=== PATIENT | female | born 1945 | race Caucasian/White ===

== ENCOUNTER → 2016-09-07 | Outpatient (CLI) | payer OTHER ==
[~2016-09-07] MED LIST: AMLO2.5T PO; ASPI81TA25 PO; ATOR-14 PO; ATOR10TA88 PO; BIOT1TAB5 PO; ERGO1CAP35 PO; ESTR1CRE PV; LEVO125T72 PO; LEVO88TA PO; MELO7.5T5 PO; OMEP40CA41 PO; PRMVC PV; QUIN20TA30 PO; TRAZ50TA35 PO
== END | disposition home or self-care (01) ==
LOC: C.LAB1850 12:32
PROVIDERS: ATTEND Family Medicine
DX: E03.9 Hypothyroidism, unspecified (principal)

== ENCOUNTER → 2016-09-10 | Outpatient (CLI) | payer OTHER ==
[2016-09-10 18:25] LABS: LYME DISEASE AB IGG NEG (NEG); LYME DISEASE AB IGM NEG (NEG)
== END | disposition home or self-care (01) ==
LOC: C.LAB1850 16:10
PROVIDERS: ATTEND Nurse Practitioner Family
DX: S00.86XA Insect bite (nonvenomous) of other part of head, initial encounter (principal); W57.XXXA Bitten or stung by nonvenomous insect and other nonvenomous arthropods, initial encounter

== ENCOUNTER → 2016-10-08 | Outpatient (CLI) | payer OTHER ==
[~2016-10-08] MED LIST changes: +ATOR10TA82 PO; -ATOR10TA88 PO
== END | disposition home or self-care (01) ==
LOC: C.LAB1850 13:16
PROVIDERS: ATTEND Family Medicine
DX: E03.9 Hypothyroidism, unspecified (principal)

== ENCOUNTER → 2016-10-19 | Outpatient (CLI) | payer OTHER ==
--- NOTE | 2016-10-19 11:49 | DIAGNOSTIC IMAGING REPORT ---
LEFT HIP 2 VIEWS HISTORY: M25.552 Left hip [id number] COMPARISON: None. FINDINGS: There is no fracture or dislocation. Soft tissues are unremarkable. Mild cartilage space narrowing consistent with degenerative change. IMPRESSION: No fracture or dislocation within the left hip. Electronically signed by: Giles Bland M.D. 10/19/2016 11:47 AM Dictated Date/Time: 10/19/2016 11:46 AM
== END | disposition home or self-care (01) ==
LOC: C.RAD1850 11:19
PROVIDERS: ATTEND Family Medicine
DX: M25.552 Pain in left hip (principal)

== ENCOUNTER → 2016-12-03 | Outpatient (CLI) | payer OTHER ==
[2016-12-03 16:13] LABS: THYROID STIMULATING HORMONE 0.621 uIu/ml (0.300-4.500)
[2016-12-05 15:30] LABS: MICROSOMAL AB <1 IU/ML (<9)
== END | disposition home or self-care (01) ==
LOC: C.LAB1850 14:48
PROVIDERS: ATTEND Family Medicine
DX: E03.9 Hypothyroidism, unspecified (principal)

== ENCOUNTER → 2016-12-28 | Outpatient (CLI) | payer OTHER ==
--- NOTE | 2016-12-28 16:00 | MAMMOGRAPHY REPORT ---
BILATERAL DIGITAL SCREENING MAMMOGRAM WITH CAD: 12/28/2016 CLINICAL HISTORY: Routine screening. Patient has no complaints. TECHNIQUE: Bilateral CC and MLO views were obtained. Current study was also evaluated with a Compute r Aided Detection (CAD) system. COMPARISON: Comparison is made to exams dated: 12/27/2015 mammogram, 12/25/2014 mammogram, 11/30/2013 m ammogram, 05/16/2013 mammogram, 05/08/2013 mammogram, and 02/29/2012 mammogram - [facility]. BREAST COMPOSITION: The tissue of both breasts is heterogeneously dense, which may obscure small mas ses. FINDINGS: There is an 11 mm asymmetry in the lateral posterior right breast, only seen on the CC vie w. Although this could represent normal fibroglandular tissue, additional spot compression tomosynth esis views and possibly ultrasound are recommended. There is a stable ribbon shaped metallic biopsy marker in the left upper outer quadrant. A few scatt ered benign-appearing round calcifications. No other suspicious mass, architectural distortion or clu ster of microcalcifications is seen. IMPRESSION: ACR BI-RADS CATEGORY 0: INCOMPLETE EVALUATION: NEED ADDITIONAL IMAGING EVALUATION The 11 mm asymmetry in the lateral right breast needs additional evaluation. The patient will be called to schedule an appointment. Approximately 10% of breast cancers are not detected with mammography. A negative mammographic report should not delay biopsy if a clinically suggestive mass is present. Kaylee Mathew M.D. ay/:12/28/2016 14:31:09 Ip Litigation Paralegal: Lenore SMART(R)(Gilles)(MARLYS), [facility] letter sent: Addl Imaging 0 BI-RADS Code: ACR BI-RADS Category 0: Incomplete Evaluation: Need Additional Imaging Evaluation
== END | disposition home or self-care (01) ==
LOC: C.MAMM 13:22
PROVIDERS: ATTEND Family Medicine
DX: Z12.31 Encounter for screening mammogram for malignant neoplasm of breast (principal)

== ENCOUNTER → 2017-01-06 | Outpatient (CLI) | payer OTHER ==
[~2017-01-06] MED LIST changes: -ATOR10TA82 PO; +ATOR10TA88 PO
--- NOTE | 2017-01-12 12:16 | MAMMOGRAPHY REPORT ---
UNILATERAL RIGHT DIGITAL DIAGNOSTIC MAMMOGRAM TOMOSYNTHESIS AND TARGETED RIGHT ULTRASOUND: 01/06/2017 CLINICAL HISTORY: Callback from screening mammogram for right breast asymmetry. TECHNIQUE: Breast tomosynthesis in addition to standard 2D mammography was performed. Spot compress ion right CC and MLO 2-D and tomosynthesis images were obtained. COMPARISON: Comparison is made to exams dated: 12/28/2016 mammogram, 12/27/2015 mammogram, 12/25/2014 m ammogram, 11/30/2013 ultrasound, 11/30/2013 mammogram, and 05/24/2013 ultrasound biopsy - [facility]. BREAST COMPOSITION: The tissue of the right breast is heterogeneously dense, which may obscure small masses. FINDINGS: The previously described asymmetry seen within the right lateral posterior breast effaces on the additional views, and has the appearance of normal fibroglandular tissue on the additional douglas osynthesis images. No suspicious masses or other suspicious mammographic abnormalities are noted on the additional views. Targeted ultrasound was performed of the right lateral breast in the region of the mammographic asymm etry. Sonographically normal tissue is seen, without evidence of a mass or other suspicious sonograp hic abnormality. IMPRESSION: ACR BI-RADS CATEGORY 2: BENIGN, TARGETED ULTRASOUND ACR BI-RADS CATEGORY 2: BENIGN The right breast asymmetry effaces on the additional views, without corresponding suspicious sonograp hic abnormality evident. The asymmetry is benign and compatible with normal fibroglandular tissue. There is no mammographic or targeted sonographic evidence of malignancy. A 1 year screening mammogram is recommended. The patient has been verbally notified of the results. Approximately 10% of breast cancers are not detected with mammography. A negative mammographic report should not delay biopsy if a clinically suggestive mass is present. Molly Wills M.D. /:01/06/2017 13:30:31 [employer] Brake Coupler: Sarah SMART(Johanna)(M), [facility] letter sent: Normal 1/2 BI-RADS Code: ACR BI-RADS Category 2: Benign Ultrasound BI-RADS: ACR BI-RADS Category 2: Benign
== END | disposition home or self-care (01) ==
LOC: C.MAMM 13:04
PROVIDERS: ATTEND Family Medicine
DX: Z12.31 Encounter for screening mammogram for malignant neoplasm of breast (principal); N64.89 Other specified disorders of breast

== ENCOUNTER 2017-02-03 00:49 | Emergency (ER) | payer OTHER ==
[~2017-02-03] VITALS: Ht 157.5 cm; Wt 67.4 kg
[~2017-02-03 00:49] MED LIST changes: -ATOR10TA88 PO; -LEVO88TA PO; -OMEP40CA41 PO; -PRMVC PV
[2017-02-03 00:51] VITALS: TEMP 36.5; Ht 157.5 cm; Wt 67.4 kg
[2017-02-03] MEDS ORDERED: LEVO88TA PO (01:21)
[2017-02-03] MEDS ORDERED: PRMVC PV (01:21)
[2017-02-03] MEDS ORDERED: ATOR10TA88 PO (01:21)
[2017-02-03 01:48] LABS: BASO % 0.4 %; BASO ABS # 0.03 K/uL (0-0.2); COMPLETE YES; EOS % 3.8 %; HEMATOCRIT 38.6 % (37-47); IG% 0.1 %; LYMPH ABS # 2.24 K/uL (1.2-3.4); MEAN CELL VOLUME 91.3 fL (80-100); MEAN CORPUSCULAR HEMOGLOBIN 29.8 pg (25-34); MEAN CORPUSCULAR HGB CONC 32.6 g/dl (32-36); MEAN PLATELET VOLUME 9.5 fL (7.4-10.4); MONO % 8.6 %; NEUT % 54.1 %; PLATELET COUNT 244 K/uL (130-400); RED BLOOD COUNT 4.23 M/uL (4.2-5.4); WHITE BLOOD COUNT 6.78 K/uL (4.8-10.8)
[2017-02-03 02:05] LABS: BUN/CREATININE RATIO 20.5 (10-20); CALCIUM 9.7 mg/dl (8.5-10.1); CREATININE 0.87 mg/dl (0.60-1.20)
[2017-02-03 02:10] LABS: ALB/GLOB RATIO 1.2 (0.9-2); CKMB/CK RATIO 1.9 (0-3.0)
[2017-02-03 02:18] LABS: INR 0.9 (0.9-1.1)
[2017-02-03 03:33] LABS: POINT OF CARE TROPONIN I < 0.030 ng/ml (0-0.045)
--- NOTE | 2017-02-03 03:55 | EMERGENCY ROOM VISIT NOTE ---
History First contact with patient: 01:02 Chief Complaint: CHEST PAIN Stated Complaint: CHEST PAIN Nursing Triage Summary: Pt ambulates to room. Reports chest pain started about 2100, 02/02/17. Feels like pressure, burning pain under left breast. Pt takes ASA 81mg q night. Took an additional ASA 324mg when the pain started. History of Present Illness The patient is a 71 year old female who presents to the Emergency Room with complaints of chest pain which began approximately 2 hours ago. The patient states it is a sharp pain in the center of her chest. She states that she has a feeling of heaviness. The pain was radiating into her left breast and back earlier tonight. She states the pain has been gradually resolving. She has had similar episodes of pain off and on for the past several months. She states that they have been increasing in frequency over the past few weeks. She states they seem to occur when she is stressed or hurrying around the house. She does not feel that the symptoms are associated with exertion. She has associated belching but denies nausea, vomiting, diaphoresis, palpitations, dizziness or lightheadedness. She denies shortness of breath. She denies any aggravating or alleviating factors. She took 324 mg aspirin tonight. She rates her current discomfort a 4/10. She denies any cardiac history but does state she has a family history of heart disease in her mother, father and brother. She has a personal history of hypertension and takes a medication for her cholesterol. She does not smoke. Review of Systems A complete 10 point review of systems was reviewed with the patient with pertinent positives and negatives as per history of present illness. All else were negative. Social History Smoking Status: Never Smoker Current/Historical Medications Scheduled Aspirin (Aspir-Low), 81 MG PO HS Atorvastatin (Lipitor), 10 MG PO HS Estrogens, Conjugated (Premarin), 0.5 GM PV 2XWK Levothyroxine Sodium (Synthroid), 88 MCG PO DAILY Omeprazole (Prilosec), 40 MG PO DAILY Quinapril Hcl (Quinapril Hcl), 20 MG PO HS Scheduled PRN Trazodone Hcl (Trazodone), 25 MG PO HS PRN for Sleep Physical Exam Vital Signs Date Time Temp Pulse Resp B/P (MAP) Pulse Ox O2 Delivery O2 Flow Rate FiO2 02/03/17 10:35 82 18 134/84 100 Room Air 02/03/17 07:29 97 18 123/81 99 Room Air 02/03/17 06:30 71 20 119/72 98 Room Air 02/03/17 05:29 72 02/03/17 04:34 74 20 132/76 98 Room Air 02/03/17 02:46 73 19 136/74 Room Air 02/03/17 01:34 Room Air 02/03/17 01:07 81 02/03/17 00:51 36.5 89 18 188/88 98 Room Air Physical Exam VITALS: Vitals are noted on the nurse's note and reviewed by myself. Vital signs stable. GENERAL: This is a 71-year-old female, in no acute distress, appears younger than stated age, nondiaphoretic. HEENT: Normocephalic. PERRLA. EOMI. Mucous membranes moist. Neck is supple without nuchal rigidity. HEART: Regular rate and rhythm without murmurs gallops or rubs. LUNGS: Clear to auscultation bilaterally without wheezes, rales or rhonchi. NEURO: Patient was alert and oriented to person place and time. Medical Decision & Procedures ER Provider Diagnostic Interpretation: CHEST X-RAY: No acute cardiopulmonary abnormalities. Laboratory Results 02/03/17 01:15 Red Blood Count 4.23, Mean Corpuscular Volume 91.3, Mean Corpuscular Hemoglobin 29.8, Mean Corpuscular Hemoglobin Concent 32.6, Mean Platelet Volume 9.5, Neutrophils (%) (Auto) 54.1, Lymphocytes (%) (Auto) 33.0, Monocytes (%) (Auto) 8.6, Eosinophils (%) (Auto) 3.8, Basophils (%) (Auto) 0.4, Neutrophils # (Auto) 3.66, Lymphocytes # (Auto) 2.24, Monocytes # (Auto) 0.58, Eosinophils # (Auto) 0.26, Basophils # (Auto) 0.03 02/03/17 01:15 Test 02/03/17 01:15 02/03/17 03:14 White Blood Count 6.78 K/uL (4.8-10.8) Red Blood Count 4.23 M/uL (4.2-5.4) Hemoglobin 12.6 g/dL (12.0-16.0) Hematocrit 38.6 % (37-47) Mean Corpuscular Volume 91.3 fL (80-100) Mean Corpuscular Hemoglobin 29.8 pg (25-34) Mean Corpuscular Hemoglobin Concent 32.6 g/dl (32-36) Platelet Count 244 K/uL (130-400) Mean Platelet Volume 9.5 fL (7.4-10.4) Neutrophils (%) (Auto) 54.1 % Lymphocytes (%) (Auto) 33.0 % Monocytes (%) (Auto) 8.6 % Eosinophils (%) (Auto) 3.8 % Basophils (%) (Auto) 0.4 % Neutrophils # (Auto) 3.66 K/uL (1.4-6.5) Lymphocytes # (Auto) 2.24 K/uL (1.2-3.4) Monocytes # (Auto) 0.58 K/uL (0.11-0.59) Eosinophils # (Auto) 0.26 K/uL (0-0.5) Basophils # (Auto) 0.03 K/uL (0-0.2) RDW Standard Deviation 43.5 fL (36.4-46.3) RDW Coefficient of Variation 13.1 % (11.5-14.5) Immature Granulocyte % (Auto) 0.1 % Immature Granulocyte # (Auto) 0.01 K/uL (0.00-0.02) Prothrombin Time 10.0 SECONDS (9.0-12.0) Prothromb Time International Ratio 0.9 (0.9-1.1) Activated Partial Thromboplast Time 25.9 SECONDS (21.0-31.0) Partial Thromboplastin Ratio 1.0 Anion Gap 3.0 mmol/L (3-11) Est Creatinine Clear Calc Drug Dose 51.8 ml/min Estimated GFR () 76.6 Estimated GFR (Non- 66.1 BUN/Creatinine Ratio 20.5 (10-20) Calcium Level 9.7 mg/dl (8.5-10.1) Total Bilirubin 0.4 mg/dl (0.2-1) Aspartate Amino Transf (AST/SGOT) 22 U/L (15-37) Alanine Aminotransferase (ALT/SGPT) 31 U/L (12-78) Alkaline Phosphatase 72 U/L (45-117) Total Creatine Kinase 124 U/L (26-192) Creatine Kinase MB 2.3 ng/ml (0.5-3.6) Creatine Kinase MB Ratio 1.9 (0-3.0) Total Protein 7.3 gm/dl (6.4-8.2) Albumin 4.0 gm/dl (3.4-5.0) Globulin 3.3 gm/dl (2.5-4.0) Albumin/Globulin Ratio 1.2 (0.9-2) Bedside D-Dimer 417 ng/mlFEU (0-450) Bedside Troponin I < 0.030 ng/ml (0-0.045) ECG Rate (beats per minute): 68 Rhythm: normal sinus Findings: T-wave inversion (Inferior) Medical Decision Differential diagnosis includes acute coronary syndrome, pulmonary embolism, pneumothorax, pericarditis, myocarditis, endocarditis, anxiety, musculoskeletal pain, GERD, costochondritis, pneumonia, among others. The patient is a 71-year-old female who presents today complaining of chest pain. Patient has had multiple recent episodes of similar chest pain. Labs were unremarkable. Troponin 2 were negative. D-dimer was negative. EKG did show some T-wave inversions in the inferior leads which was new from the patient 's most recent EKG, but has been present on a previous EKG. EKG was repeated at 90 minutes and was unchanged. The patient's symptoms are more consistent with GERD or gastritis. However, given her age and family history I do feel further testing is warranted. I spoke with Dr. Linda of cardiology who agreed to perform a stress test prior to discharge. Care of the patient was signed out to Thomas Estrella PA-C at change of shift pending stress test results. Impression Primary Impression: Substernal chest pain Departure Information Dispostion Home / Self-Care Condition GOOD Prescriptions Omeprazole (PRILOSEC) 40 Mg Cap 40 MG PO DAILY for 14 Days, #14 CAP Prov: Hawa Dotson PA-C 02/03/17 Referrals Geetha Ernst DO (PCP) Patient Instructions My [facility] Additional Instructions Prilosec as prescribed. Follow-up with her primary care provider this week for further evaluation. Return to the emergency department with any worsening of your current condition or new/concerning symptoms.
--- NOTE | 2017-02-03 04:07 | EMERGENCY ROOM VISIT NOTE ---
ED Visit Note First contact with patient: 01:02 I saw this patient in conjunction with Hawa Dotson PA-C. I agree with her decision making and treatment plan.
--- NOTE | 2017-02-03 07:12 | DIAGNOSTIC IMAGING REPORT ---
SINGLE VIEW CHEST CLINICAL HISTORY: Atypical chest pain. FINDINGS: An AP, portable, upright chest radiograph is compared to study dated 04/06/2014. The examination is degraded by portable technique and patient rotation. The cardiomediastinal silhouette is unremarkable. There is mild atherosclerotic calcification of the thoracic aorta. There is mild elevation of the right hemidiaphragm with bibasilar atelectasis. No airspace consolidation is seen typical for pneumonia and there is no large pleural effusion. No pneumothorax is seen. The skeletal structures are osteopenic. The bony thorax is grossly intact. IMPRESSION: No acute cardiopulmonary abnormality. Electronically signed by: Lauri Green M.D. 02/03/2017 7:11 AM Dictated Date/Time: 02/03/2017 7:10 AM
[2017-02-03] MEDS ORDERED: OMEP40CA41 PO (08:28)
--- NOTE | 2017-02-03 10:34 | EMERGENCY ROOM VISIT NOTE ---
ED Visit Note First contact with patient: 08:28 This is a 71-year-old female who is care was transferred to wi from Hawa Dotson PA-C at change of shift. The patient presented to the emergency department with chest pain, and a stress test was in progress at the time of transfer of care. Stress test was performed by Dr. Linda, and Dr. Linda indicated that the stress test was normal. Labs were reviewed: Results Past 24 Hours Test 02/03/17 01:15 02/03/17 01:30 02/03/17 03:14 Range/Units White Blood Count 6.78 4.8-10.8 K/uL Red Blood Count 4.23 4.2-5.4 M/uL Hemoglobin 12.6 12.0-16.0 g/dL Hematocrit 38.6 37-47 % Mean Corpuscular Volume 91.3 80-100 fL Mean Corpuscular Hemoglobin 29.8 25-34 pg Mean Corpuscular Hemoglobin Concent 32.6 32-36 g/dl Platelet Count 244 130-400 K/uL Mean Platelet Volume 9.5 7.4-10.4 fL Neutrophils (%) (Auto) 54.1 % Lymphocytes (%) (Auto) 33.0 % Monocytes (%) (Auto) 8.6 % Eosinophils (%) (Auto) 3.8 % Basophils (%) (Auto) 0.4 % Neutrophils # (Auto) 3.66 1.4-6.5 K/uL Lymphocytes # (Auto) 2.24 1.2-3.4 K/uL Monocytes # (Auto) 0.58 0.11-0.59 K/uL Eosinophils # (Auto) 0.26 0-0.5 K/uL Basophils # (Auto) 0.03 0-0.2 K/uL RDW Standard Deviation 43.5 36.4-46.3 fL RDW Coefficient of Variation 13.1 11.5-14.5 % Immature Granulocyte % (Auto) 0.1 % Immature Granulocyte # (Auto) 0.01 0.00-0.02 K/uL Prothrombin Time 10.0 9.0-12.0 SECONDS Prothromb Time International Ratio 0.9 0.9-1.1 Activated Partial Thromboplast Time 25.9 21.0-31.0 SECONDS Partial Thromboplastin Ratio 1.0 Sodium Level 141 136-145 mmol/L Potassium Level 4.0 3.5-5.1 mmol/L Chloride Level 107 98-107 mmol/L Carbon Dioxide Level 31 21-32 mmol/L Anion Gap 3.0 3-11 mmol/L Blood Urea Nitrogen 18 7-18 mg/dl Creatinine 0.87 0.60-1.20 mg/dl Est Creatinine Clear Calc Drug Dose 51.8 ml/min Estimated GFR () 76.6 Estimated GFR (Non- 66.1 BUN/Creatinine Ratio 20.5 10-20 Random Glucose 100 70-99 mg/dl Calcium Level 9.7 8.5-10.1 mg/dl Total Bilirubin 0.4 0.2-1 mg/dl Aspartate Amino Transf (AST/SGOT) 22 15-37 U/L Alanine Aminotransferase (ALT/SGPT) 31 12-78 U/L Alkaline Phosphatase 72 45-117 U/L Total Creatine Kinase 124 26-192 U/L Creatine Kinase MB 2.3 0.5-3.6 ng/ml Creatine Kinase MB Ratio 1.9 0-3.0 Total Protein 7.3 6.4-8.2 gm/dl Albumin 4.0 3.4-5.0 gm/dl Globulin 3.3 2.5-4.0 gm/dl Albumin/Globulin Ratio 1.2 0.9-2 Bedside Troponin I < 0.030 < 0.030 0-0.045 ng/ml Bedside D-Dimer 417 0-450 ng/mlFEU ECG and chest x-ray were also reviewed and were normal.. In addition to a normal stress test, the patient also reports that she has had no recent chest pain with exertion, which is also encouraging. The patient was encouraged to continue follow-up with her PCP. The patient was provided a prescription for Prilosec, and instructed to avoid caffeine, alcohol , spicy foods and NSAIDs. She was instructed to return to the emergency department as needed for worsening pain, shortness of breath, fever or other concerning symptoms. The patient was happy with plan of care, and denied any significant discomfort at the time of discharge. DIAGNOSIS: Noncardiac chest pain
[2017-02-03 10:35] VITALS: BP 134/84; PULSE 82; O2SAT 100
--- NOTE | 2017-02-04 11:06 | EXERCISE STRESS ECHO ---
*NOTICE TO RECEIVING CONSTITUTION PARTY AGENCY This information is strictly Confidential and protected under [place] law. [place] law prohibits you from making any further disclosure of this information unless further disclosure is expressly permitted by the written consent of the person to whom it pertains or is authorized by law. A general authorization for the release of medical or other information is not sufficient for this purpose. Hospital accepts no responsibility if the information is made available to any other person, INCLUDING THE PATIENT. Interpretation Summary * Name: YAHAIRA DUNNE Study Date: 02/03/2017 07:41 AM BP: 137/82 mmHg * Patient Location: .ED HR: 73 * : 1945 (M/d/yyyy) Gender: Female Height: 62 in * Age: 71 yrs Ethnicity: CA Weight: 148 lb * Performed By: Lenore Medina RCS * * Reason For Study: CHEST PAIN * BSA: 1.7 m2 * -- Conclusions -- * Left ventricular systolic function is normal. * Right ventricular systolic pressure is normal. * Normal maximal stress echocardiogram without evidence of inducible ischemia. Procedure Details * ECHOEX, CPT #[id number] * ECHO COLOR FLOW, CPT #[id number] * ECHO DOPPLER, CPT #[id number] Left Ventricular Findings with Stress * Normal maximal stress echocardiogram without evidence of inducible ischemia. Left Ventricle * The left ventricle is normal in size. * There is normal left ventricular wall thickness. * Left ventricular systolic function is normal. * Ejection Fraction = 55-60%. * Some impaired relaxation, normal for age. * The left ventricular wall motion is normal. Right Ventricle * The right ventricle is normal in size and function. Atria * The left atrial size is normal. * Right atrial size is normal. Mitral Valve * The mitral valve anatomy is normal. * There is trace mitral regurgitation. Tricuspid Valve * The tricuspid valve anatomy is normal. * There is trace tricuspid regurgitation. * Right ventricular systolic pressure is normal. Aortic Valve * The aortic valve is normal in structure and function. * No hemodynamically significant valvular aortic stenosis. * There is no significant aortic regurgitation. Great Vessels * The aortic root is normal size. Pericardium * There is no pericardial effusion. Stress Parameters * Normal baseline electrocardiogram. * The stress ECG response was normal * The stress portion of this study was personally supervised by the undersigned interpreting physician. * Rest heart rate was '73' BPM. * Rest blood pressure was '137/82' * Maximum heart rate achieved was 151 bpm. * Maximum heart rate was 102 % of maximum age-predicted heart rate. * Maximum blood pressure was '195/94' * Total exercise time was '06:01' * Maximum exercise MET level achieved was '7.00' METS * Maximum treadmill speed was '2.50' miles per hour. * Maximum treadmill elevation was '12.00'% grade. Left Ventricular Findings with Stress * Baseline EKG was normal There are no significant EKG changes with exertion Baseline echocardiogram revealed normal wall motion and function There was normal augmentation of all gutierrez without development of inducible wall motion abnormalities during exercise Slightly exaggerated heart rate and blood pressure response to exercise Jaramillo treadmill score 6 (low risk) No symptoms reported during the test MMode 2D Measurements and Calculations IVSd 1.1 cm IVSs 1.4 cm LVIDd 4.1 cm LVIDs 2.6 cm LVPWd 1.1 cm LVPWs 1.2 cm IVS/LVPW 1.0 FS 37.5 % EDV(Teich) 74.1 ml ESV(Teich) 23.7 ml EF(Teich) 68.0 % EDV(cubed) 68.8 ml ESV(cubed) 16.8 ml EF(cubed) 75.6 % % IVS thick 28.5 % % LVPW thick 14.1 % LV mass(C)d 149.1 grams LV mass(C)dI 88.7 grams/m\S\2 LV mass(C)s 104.2 grams LV mass(C)sI 61.9 grams/m\S\2 SV(Teich) 50.4 ml SI(Teich) 30.0 ml/m\S\2 SV(cubed) 52.0 ml SI(cubed) 30.9 ml/m\S\2 Ao root diam 2.7 cm Ao root area 5.6 cm\S\2 ACS 1.9 cm LA dimension 3.1 cm LA/Ao 1.1 LVOT diam 1.9 cm LVOT area 2.9 cm\S\2 Doppler Measurements and Calculations MV E max eliseo 65.2 cm/sec MV A max eliseo 67.9 cm/sec MV E/A 0.96 MV P1/2t max eliseo 81.2 cm/sec MV P1/2t 80.8 msec MVA(P1/2t) 2.7 cm\S\2 MV dec slope 294.4 cm/sec\S\2 MV dec time 0.28 sec Ao V2 max 137.4 cm/sec Ao max PG 7.6 mmHg Ao max PG (full) 4.9 mmHg JOSE(V,A) 1.7 cm\S\2 JOSE(V,D) 1.7 cm\S\2 LV V1 max PG 2.6 mmHg LV V1 max 80.9 cm/sec MR max eliseo 535.8 cm/sec MR max PG 114.8 mmHg PA V2 max 64.7 cm/sec PA max PG 1.7 mmHg PI max eliseo 151.8 cm/sec PI max PG 9.2 mmHg PI dec slope 184.4 cm/sec\S\2 PI P1/2t 241.2 msec TR max eliseo 235.8 cm/sec
== END 2017-02-03 10:37 | disposition home or self-care (01) ==
LOC: C.EDB 00:50 → C.EDA 10:37
DX: R07.2 Precordial pain (principal); I10 Essential (primary) hypertension; E78.00 Pure hypercholesterolemia, unspecified; Z79.899 Other long term (current) drug therapy

== ENCOUNTER → 2017-02-16 | Outpatient (CLI) | payer OTHER ==
[~2017-02-16] MED LIST changes: -AMLO2.5T PO; -ATOR-14 PO; +ATOR10TA88 PO; -BIOT1TAB5 PO; -ERGO1CAP35 PO; -ESTR1CRE PV; -LEVO125T72 PO; +LEVO88TA PO; -MELO7.5T5 PO; +OMEP40CA41 PO; +PRMVC PV
[2017-02-16 14:36] LABS: HEMATOCRIT 38.4 % (37-47); MEAN CELL VOLUME 91.9 fL (80-100); MEAN CORPUSCULAR HEMOGLOBIN 29.2 pg (25-34); MEAN CORPUSCULAR HGB CONC 31.8 g/dl (32-36); MEAN PLATELET VOLUME 9.7 fL (7.4-10.4); PLATELET COUNT 239 K/uL (130-400); RED BLOOD COUNT 4.18 M/uL (4.2-5.4); WHITE BLOOD COUNT 6.25 K/uL (4.8-10.8)
[2017-02-16 14:58] LABS: BLOOD UREA NITROGEN 17 mg/dl (7-18); BUN/CREATININE RATIO 20.6 (10-20); CALCIUM 8.8 mg/dl (8.5-10.1); CARBON DIOXIDE 27 mmol/L (21-32); CHLORIDE 108 mmol/L (98-107); CREATININE 0.83 mg/dl (0.60-1.20); GLUCOSE 96 mg/dl (70-99); POTASSIUM 4.2 mmol/L (3.5-5.1); SODIUM 140 mmol/L (136-145)
[2017-02-16 15:08] LABS: FERRITIN 34.5 ng/ml (8.0-388.0)
== END | disposition home or self-care (01) ==
LOC: C.LAB1850 13:22
PROVIDERS: ATTEND Family Medicine
DX: L65.9 Nonscarring hair loss, unspecified (principal)

== ENCOUNTER → 2017-04-17 | Outpatient (CLI) | payer OTHER ==
[~2017-04-17] MED LIST changes: -OMEP40CA41 PO
[2017-04-17 11:18] LABS: HEMATOCRIT 36.9 % (37-47); MEAN CORPUSCULAR HEMOGLOBIN 30.4 pg (25-34); MEAN CORPUSCULAR HGB CONC 33.1 g/dl (32-36); MEAN PLATELET VOLUME 9.9 fL (7.4-10.4); PLATELET COUNT 201 K/uL (130-400); RED BLOOD COUNT 4.01 M/uL (4.2-5.4)
[2017-04-17 11:56] LABS: ALT/SGPT 24 U/L (12-78); BLOOD UREA NITROGEN 15 mg/dl (7-18); CALCIUM 9.1 mg/dl (8.5-10.1); CARBON DIOXIDE 30 mmol/L (21-32); CHLORIDE 106 mmol/L (98-107); CHOLESTEROL 146 mg/dl (0-200); CREATININE 0.89 mg/dl (0.60-1.20); GLUCOSE 95 mg/dl (70-99); POTASSIUM 4.3 mmol/L (3.5-5.1); SODIUM 139 mmol/L (136-145); TRIGLYCERIDES 101 mg/dl (0-150); VERY LOW DENSITY LIPOPROT CALC 20 mg/dl
[2017-04-17 11:59] LABS: ALB/GLOB RATIO 1.2 (0.9-2); ALKALINE PHOSPHATASE 65 U/L (45-117); AST/SGOT 18 U/L (15-37); CHOLESTEROL/HDL RATIO 2.4; HDL CHOLESTEROL 61 mg/dl; LDL CHOLESTEROL CALCULATED 65 mg/dl
== END ==
LOC: C.LAB 10:44
PROVIDERS: ATTEND Family Medicine
DX: I10 Essential (primary) hypertension (principal); E78.00 Pure hypercholesterolemia, unspecified; E03.9 Hypothyroidism, unspecified

== ENCOUNTER → 2017-06-11 | Outpatient (CLI) | payer OTHER ==
[~2017-06-11] MED LIST changes: +ATOR10TA82 PO; -ATOR10TA88 PO
== END | disposition home or self-care (01) ==
LOC: C.LAB1850 15:32
PROVIDERS: ATTEND Family Medicine
DX: E03.9 Hypothyroidism, unspecified (principal)

== ENCOUNTER → 2017-08-13 | Outpatient (CLI) | payer OTHER | END | disposition home or self-care (01) | LOC: C.LAB1850 09:10 | PROVIDERS: ATTEND Family Medicine | DX: E03.9 Hypothyroidism, unspecified (principal) ==

== ENCOUNTER → 2017-10-05 | Outpatient (CLI) | payer OTHER ==
[~2017-10-05] MED LIST changes: +BIOT1CAP8 PO; +DOXYCYCLINE PO; +LEVO100T7 PO; -LEVO88TA PO; -PRMVC PV
[2017-10-05 17:02] LABS: HEMATOCRIT 38.1 % (37-47); HEMOGLOBIN 12.5 g/dL (12.0-16.0); MEAN CELL VOLUME 92.9 fL (80-100); MEAN CORPUSCULAR HEMOGLOBIN 30.5 pg (25-34); MEAN CORPUSCULAR HGB CONC 32.8 g/dl (32-36); MEAN PLATELET VOLUME 10.1 fL (7.4-10.4); PLATELET COUNT 249 K/uL (130-400); RED CELL DISTRIBUTION WIDTH CV 13.8 % (11.5-14.5); RED CELL DISTRIBUTION WIDTH SD 47.1 fL (36.4-46.3); WHITE BLOOD COUNT 5.76 K/uL (4.8-10.8)
[2017-10-05 17:21] LABS: BLOOD UREA NITROGEN 18 mg/dl (7-18); CALCIUM 9.3 mg/dl (8.5-10.1); CARBON DIOXIDE 27 mmol/L (21-32); CREATININE 0.89 mg/dl (0.60-1.20); GLUCOSE 84 mg/dl (70-99); POTASSIUM 4.2 mmol/L (3.5-5.1); SODIUM 139 mmol/L (136-145)
== END | disposition home or self-care (01) ==
LOC: C.LABPBG 11:40
PROVIDERS: ATTEND Family Medicine
DX: Z01.818 Encounter for other preprocedural examination (principal)

== ENCOUNTER → 2017-10-12 | Day surgery (SDC) | payer OTHER ==
[2017-09-30 10:21] VITALS: Ht 160 cm; Wt 65.9 kg
[~2017-10-12] VITALS: Ht 160 cm; Wt 65.9 kg
[~2017-10-12] MED LIST changes: +500ML BSS 0.3ML EPI 1:1000PF IRRIG ONE; +ACETAMINOPHEN 325 MG TAB PO PRN; +AMVISC PLUS 0.8ML SYRINGE INT OCU ONE; +ATROPINE SULFATE 0.1 MG/ML 5ML SYR IV PRN; +BSS FLUSH ONE; +EpHEDrine SULFATE INJ 50 MG/ML AMP IV PRN; +EpINEphrine INJ 1MG/ML AMP 1 MG/ML AMP ONE; +LACTATED RINGER'S 1000ML 500 ML IV SCH; +LIDOCAINE 3.5% OPH GEL PER APPLICATION CHARGE ONE; +LIDOCAINE HCL 1% MPF 2 ML VIAL ONE; +MIDAZOLAM HCL 1 MG/ML 2ML VIAL ONE; +POVIDONE-IODINE OP SOLN 30 ML BTL ONE; +PROPARACAINE 0.5% OP SOLN PER DROP CHARGE OPL SCH; +TOBRAMYCIN/DEXAMETHASONE OPH OINT PER APPLN CHARGE ONE; +TRYPAN BLUE 0.15% FOR SURGI CENTER ONLY OP ONE
[2017-10-12] MEDS: PHENYLEPHRINE HCL 2.5% OP SOLN PER DROP CHARGE OPL SCH ×2 (09:52→09:57)
[2017-10-12] MEDS: TROPICAMIDE 1% OP SOLN PER DROP CHARGE OPL SCH ×2 (09:53→09:58)
[2017-10-12] MEDS: CYCLOPENTOLATE HCL 1% OP SOLN PER DROP CHARGE OPL SCH ×2 (09:54→09:59)
[2017-10-12] MEDS: KETOROLAC 0.5% OP SOLN PER DROP CHARGE OPL SCH ×2 (09:55→10:00)
[2017-10-12] MEDS: GATIFLOXACIN OP SOLN PER DROP CHARGE OPL SCH ×2 (09:56→10:06)
--- NOTE | 2017-10-12 10:23 | History & Physical Bridge - SC ---
H&P Re-Evaluation Bridge Note: I have examined the patient, reviewed the History & Physical and in the interval since the performance of the History & Physical I have noted the following changes of clinical significance: No changes noted
--- NOTE | 2017-10-12 11:12 | [facility] Operative Report ---
Operative Report Date of Service Oct 12, 2017. Operative Report 1. PREOPERATIVE DIAGNOSIS: Cataract of the left eye. 2. POSTOPERATIVE DIAGNOSIS: Same. 3. PROCEDURE: Phacoemulsification with intraocular lens implantation of the left eye. SURGEON: Dr. Chris Juarez. ANESTHESIA: Topical Lidocaine gel, 1% Non- Preserved intracameral Lidocaine, and monitored intravenous sedation. INDICATIONS FOR THE PROCEDURE: The patient is a 72 - year-old female with a history of cataract of the left eye causing significant visual impairment. The details of the proposed procedure were explained to the patient who asked appropriate questions and following discussion of all risks, benefits and alternatives agreed to have the procedure done. 4. OPERATION AND FINDINGS: DESCRIPTION OF PROCEDURE: After informed consent was obtained, the patient was brought to the Operating Room at the [facility]. The patient was placed in a supine position and then the left eye was prepped and draped in the usual sterile fashion for intraocular surgery. A drop of topical Lidocaine gel was placed in the operative eye. A wire lid speculum was then placed in the fornices. A corneal paracentesis was then created temporally. The Non-Preserved Lidocaine was then instilled into the anterior chamber. The anterior chamber was then pressurized with viscoelastic. A 2.0 mm clear corneal incision was then created temporally. A cystotome was inserted into the anterior chamber and used to create a tear in the anterior lens capsule. This capsular tear was then used to create a small flap and the flap was dragged in a counterclockwise direction in order to create a continuous curvilinear capsulorrhexis. Hydrodissection was accomplished with balanced salt solution. Phacoemulsification of the lens nucleus was then performed in a standard [id number] technique. The phaco time was 23 seconds with an average power of 11 %. The remaining cortical material was removed using irrigation aspiration. The capsular bag was then filled with viscoelastic. A [employer] MI60L +19.5 diopters lens was then loaded into the injector and injected into the capsular bag. The remaining viscoelastic was removed with the irrigation aspiration handpiece. The wound was hydrated and then checked and found to be watertight. The intraocular pressure was checked and found to be adequate. The wire lid speculum was removed and the patient's face was cleaned and dried. TobraDex ointment was placed in the inferior fornix. The patient was discharged to the Recovery Room having tolerated the procedure well. There were no complications. The patient will be seen tomorrow in the office for follow-up. I attest to the content of the Intraoperative Record and any orders documented therein. Any exceptions are noted below.
--- NOTE | 2017-10-12 11:12 | Discharge Instructions-SurgCtr ---
Discharge Instructions Date of Service Oct 12, 2017. Visit Reason for Visit: Cataract Left Eye Discharge Discharge Diagnosis / Problem: cataract Discharge Goals Goal(s): Improve function Activity Recommendations Activity Limitations: per Instructions/Follow-up section Anesthesia . Post Anesthesia Instructions: If you have had General Anesthesia or IV Sedation: * Do not drive today. * Resume driving when surgeon permits. * Do not make important decisions or sign legal documents today. * Call surgeon for: 1. Temperature elevations greater than 101 degrees F. 2. Uncontrollable pain. 3. Excessive bleeding. 4. Persistent nausea and vomiting. 5. Medication intolerance (nausea, vomiting or rash). * For nausea and vomiting use only clear liquids such as: tea, soda, bouillon until nausea subsides, then gradually increase diet as tolerated. * If you have any concerns or questions, call your surgeon's office. If physician is unavailable and it is an emergency, call 911 or go to the nearest emergency room. . Diet Recommendations Home Diet: resume previous diet Procedures Procedures Performed: Left Cataract Phacoemulsification With Intraocular Lens Implant Pending Studies Studies pending at discharge: no Medical Emergencies . Who to Call and When: Medical Emergencies: If at any time you feel your situation is an emergency, please call 911 immediately. . Non-Emergent Contact Non-Emergency issues call your: Turf And Grounds Supervisor . . "Provider Documentation" section prepared by Chris Juarez. .
[2017-10-12 11:14] VITALS: TEMP 36.7
[2017-10-12 11:37] VITALS: BP 101/67; PULSE 73; O2SAT 97
--- NOTE | 2017-10-12 11:42 | Anesthesia Progress Nt - [facility] ---
Anesthesia Post Op Note Date & Time Oct 12, 2017 at 11:42 Vital Signs Pain Intensity: 0 Vital Signs Past 12 Hours Date Time Temp Pulse Resp B/P (MAP) Pulse Ox O2 Delivery O2 Flow Rate FiO2 10/12/17 11:37 73 16 101/67 (78) 97 Room Air 10/12/17 11:14 36.7 77 16 107/68 (81) 97 Room Air 10/12/17 09:47 36.7 76 18 110/68 (82) 95 Room Air Notes Mental Status: alert / awake / arousable, participated in evaluation Pt Amnestic to Procedure: Yes Nausea / Vomiting: adequately controlled Pain: adequately controlled Airway Patency, RR, SpO2: stable & adequate BP & HR: stable & adequate Hydration State: stable & adequate Anesthetic Complications: no major complications apparent
== END | disposition home or self-care (01) ==
LOC: X.SURG 09:27
PROVIDERS: ATTEND Ophthalmology
DX: H26.9 Unspecified cataract (principal); I10 Essential (primary) hypertension; E03.9 Hypothyroidism, unspecified; E78.00 Pure hypercholesterolemia, unspecified; M85.80 Other specified disorders of bone density and structure, unspecified site; N95.9 Unspecified menopausal and perimenopausal disorder; E78.5 Hyperlipidemia, unspecified; G47.00 Insomnia, unspecified; M19.90 Unspecified osteoarthritis, unspecified site; K21.9 Gastro-esophageal reflux disease without esophagitis; F32.9 Major depressive disorder, single episode, unspecified; L71.9 Rosacea, unspecified; Z82.49 Family history of ischemic heart disease and other diseases of the circulatory system; Z80.3 Family history of malignant neoplasm of breast; Z80.0 Family history of malignant neoplasm of digestive organs; Z82.0 Family history of epilepsy and other diseases of the nervous system

== ENCOUNTER → 2018-01-28 | Outpatient (CLI) | payer OTHER ==
[~2018-01-28] MED LIST changes: -500ML BSS 0.3ML EPI 1:1000PF IRRIG ONE; -ACETAMINOPHEN 325 MG TAB PO PRN; -AMVISC PLUS 0.8ML SYRINGE INT OCU ONE; -ATROPINE SULFATE 0.1 MG/ML 5ML SYR IV PRN; -BSS FLUSH ONE; -EpHEDrine SULFATE INJ 50 MG/ML AMP IV PRN; -EpINEphrine INJ 1MG/ML AMP 1 MG/ML AMP ONE; -LACTATED RINGER'S 1000ML 500 ML IV SCH; -LIDOCAINE 3.5% OPH GEL PER APPLICATION CHARGE ONE; -LIDOCAINE HCL 1% MPF 2 ML VIAL ONE; -MIDAZOLAM HCL 1 MG/ML 2ML VIAL ONE; -POVIDONE-IODINE OP SOLN 30 ML BTL ONE; -PROPARACAINE 0.5% OP SOLN PER DROP CHARGE OPL SCH; -TOBRAMYCIN/DEXAMETHASONE OPH OINT PER APPLN CHARGE ONE; -TRYPAN BLUE 0.15% FOR SURGI CENTER ONLY OP ONE
--- NOTE | 2018-01-28 15:40 | MAMMOGRAPHY REPORT ---
UNILATERAL LEFT DIGITAL DIAGNOSTIC MAMMOGRAM TOMOSYNTHESIS AND TARGETED LEFT ULTRASOUND: 01/28/2018 CLINICAL HISTORY: Callback from screening mammogram for possible left breast architectural distortion . The patient reports a prior benign left breast surgical excision many years ago. TECHNIQUE: The study was acquired using full field digital technology and interpreted from soft copy. Breast tomosynthesis in addition to standard 2D mammography was performed. Spot compression left CC and MLO 2D and tomosynthesis images were obtained. COMPARISON: Comparison is made to exams dated: 01/18/2018 mammogram, 01/06/2017 mammogram, 12/28/2016 ma mmogram, 12/27/2015 mammogram, and 12/25/2014 mammogram - [facility]. BREAST COMPOSITION: The tissue of left breast is heterogeneously dense, which may obscure small chencho s. FINDINGS: A linear scar marker was placed on a faint scar seen on the skin in the left superior breast at appro ximately 12. The spot compression views demonstrate minimal subtle architectural distortion within t he left breast at approximately 12:00, only well seen on the tomosynthesis images, which is located n ear the linear scar marker. No suspicious mass or other suspicious abnormality is seen in this regio n. Targeted ultrasound was performed of the left breast at approximately 12:00 in the region of the mamm ographic distortion. There is minimal distortion seen within the left 1130 breast, 2 cm from the nip ple, best seen during real-time scanning. This underlies the faint scar on the skin from a prior niecy ign surgical excision. This corresponds with the mammographic distortion and is benign and is though t to represent postsurgical changes. IMPRESSION: ACR BI-RADS CATEGORY 2: BENIGN, ULTRASOUND ACR BI-RADS CATEGORY 2: BENIGN Minimal architectural distortion in the left superior breast at approximately 1130 to 12:00 is locate d at the site of a scar from a remote surgical excision and is therefore benign and thought to repres ent postsurgical changes. There is no mammographic or sonographic evidence of malignancy. A 1 year s creening mammogram is recommended.(01/29/2019) The patient has been verbally notified of the results. Some breast cancers are not detected with mammography. A negative mammographic report should not linus y biopsy if a clinically suggestive mass is present. Molly Wills M.D. /:01/28/2018 12:02:52 Tester Electronic Scale: Freida Jordan RT(R)(M), [facility] letter sent: Normal 07/06 OVERALL STUDY BIRADS: 2 Benign
== END | disposition home or self-care (01) ==
LOC: C.MAMM 10:28
PROVIDERS: ATTEND Family Medicine
DX: R92.8 Other abnormal and inconclusive findings on diagnostic imaging of breast (principal)

== ENCOUNTER → 2018-02-21 | Outpatient (CLI) | payer OTHER | END | disposition home or self-care (01) | LOC: C.LABSPEC 14:00 | PROVIDERS: ATTEND Obstetrics & Gynecology | DX: R39.9 Unspecified symptoms and signs involving the genitourinary system (principal) ==

== ENCOUNTER 2021-03-10 23:46 | Observation (INO) ==
[2021-03-11] MEDS ORDERED: hydrALAZINE HCL 20 MG/ML VIAL IV STA ×2 (01:10→05:35)
[2021-03-11 01:59] LABS: Basophils # (auto) 0.04 K/uL (0-0.2); Basophils % (auto) 0.8 %; Eosinophils # (auto) 0.27 K/uL (0-0.5); Eosinophils % (auto) 5.2 %; Hematocrit (blood only) 37.4 % (37-47); Hemoglobin 12.3 g/dL (12.0-16.0); Lymphocytes # (auto) 1.53 K/uL (1.2-3.4); Lymphocytes % (auto) 29.3 %; Mean Corpuscular Hemoglobin 31.3 pg (25-34); Mean Corpuscular Hgb Conc 32.9 g/dL (32-36); Mean Corpuscular Volume 95.2 fL (80-100); Mean Platelet Volume 9.7 fL (7.4-10.4); Monocytes # (auto) 0.35 K/uL (0.11-0.59); Monocytes % (auto) 6.7 %; Neutrophils # (auto) 3.04 K/uL (1.4-6.5); Platelet Count 226 K/uL (130-400); RDW Coefficient of Variation 12.7 % (11.5-14.5); RDW Standard Deviation 44.7 fL (36.4-46.3); Red Blood Count 3.93 M/uL (4.2-5.4); White Blood Count 5.23 K/uL (4.8-10.8)
--- NOTE | 2021-03-11 02:15 | Emergency Department Note ---
Impression & Plan Acute electrocardiogram changes, Hypertension Admit to the [facility] service ED Provider Note NAME: YAHAIRA DUNNE AGE: 75 SEX: F ARRIVES VIA: Walk-In INFORMANT: Patient ED PROVIDER(S): Gloria Pretty DO CHIEF COMPLAINT: Left-sided neck discomfort PLAN: Disposition: Admit to the [facility] service Condition: Stable MEDICAL DECISION MAKING: This is a 75-year-old female patient with history of hypertension who presents to the emergency department with an intermittent burning sensation to the left side of her neck. The patient took her blood pressure at home and found to be 200/100 which is extremely high for her. The patient's blood pressure did come down after IV antihypertensives but she was noted to have some EKG changes in comparison to previous EKGs. There is some concern for anginal equivalent. [facility] and [facility] will [facility] for further management. Triage Nursing notes reviewed and agree with them. Prior medical records reviewed Vital Signs: reviewed and remarkable for hypertension Differential diagnosis: Hypertensive urgency, cardiac ischemia, angina, anxiety, ER treatment provided: IV hydralazine Diagnostics interpreted by me: EKG: normal sinus rhythm at a rate of 75 with T wave inversion in the lateral leads and ST segment depression in leads V2-V6 and lead I and aVL. These are new in comparison to previous EKGs. Repeat EKG: Normal sinus rhythm at [address] segments depression and T wave inversion in leads V3 through V6 and I and aVL Cardiac Monitoring: Normal sinus rhythm at 79 Laboratory studies: See below Imaging studies: As per my interpretation Chest x-ray: No acute pulmonary infiltrates. Narrow mediastinum. No cardio megaly. HPI: 75/F arrives for evaluation of left-sided neck discomfort. The patient presents to the emergency department with left-sided neck discomfort occurring intermittently for 15-30 minutes at a time. The patient took her blood pressure at home and found the systolic number to be greater than 200 and the diastolic number to be greater than 100. ROS: See above HPI for pertinent positives & negatives. A total of 10 systems reviewed and were otherwise negative. PAST MEDICAL HISTORY:Hypertension PAST SURGICAL HISTORY:See Below FAMILY HISTORY:See Below SOCIAL HISTORY:See Below HOME MEDICATIONS:See list ALLERGIES:See list VITALS:See Below PHYSICAL EXAMINATION: HEENT: Head - normocephalic and atraumatic Pupils are equal, round, and reactive to light. Extraocular eye muscles are intact, and sclera are anicteric. Nose - moist nasal mucosa without discharge. Mouth - moist buccal mucosa. Oropharynx is nonerythematous and there is no tonsillar exudate or edema noted. Neck: Supple; no JVD, nuchal rigidity, cervical lymphadenopathy, or auscultated bruits. Heart: Regular rate and rhythm. There is a normal S1 and S2 with no murmurs, clicks, or gallops appreciated. Lungs: Clear to auscultation bilaterally with no wheezes, rales, or rhonchi. Abdomen: Soft, completely nontender, nondistended, with good bowel sounds. There are no palpable pulsatile masses or hepatosplenomegaly. There is no guarding, rigidity, or rebound noted. Extremities: No evidence of cyanosis, clubbing, or edema. There are easily palpable peripheral pulses. Skin: warm and dry with good turgor and no rashes. ED COURSE: Times/Reassessments: 0055: Patient was evaluated in room C3. A complete history and physical was performed. A twelve-lead EKG was obtained. An order was placed for continuous cardiac monitoring. The patient was in a normal sinus rhythm at a rate of 79. Laboratory studies were drawn as above. Patient was given a dose of IV hydralazine. Portable chest x-ray was performed. Twelve-lead EKG was repeated. I discussed the case with Dr. Pedersen and she will evaluate for further management. Gloria Pretty DO Past Med/Surg History Medical History Allergic rhinitis due to pollen Alopecia totalis Anxiety and depression Cataract Cystocele, midline Disc degeneration, lumbar Gastroesophageal reflux disease Generalized osteoarthritis of multiple sites History of basal cell carcinoma (BCC) of skin Hypercholesterolemia Hypertension Hypothyroidism Insomnia Left knee DJD Microscopic hematuria Migraine headache Osteoporosis Painful total knee replacement, right Right bundle branch block (RBBB) Rosacea Vitamin D deficiency Surgical History H/O basal cell carcinoma excision H/O breast biopsy History of basal cell carcinoma History of salpingo-oophorectomy History of total knee arthroplasty S/P cataract surgery Status post hysterectomy Status post tubal ligation Family History Mother Cardiac disorder Grandmother (Maternal) Breast cancer Brother Prostate cancer Pancreatic cancer Grandfather (Maternal) Pancreatic cancer Uncle Pancreatic cancer MATERNAL Father Parkinsons disease Denies family history of Ovarian cancer Myocardial infarction Colorectal cancer Social History Smoking Status: Never smoker Second Hand Exposure: No; Hx Alcohol Use: Yes Alcohol type: wine Alcohol Intake Frequency: Monthly or Less Hx Substance Use: No Preferred Language: Spanish Communication Ability: Effective Visual Impairment: No Limitations Hearing Ability: Normal Foreman/Project Manager Required: No Beliefs That Will Affect Care: None marital status: Current Living Situation: Spouse current occupational status: retired Feels Safe at Home: Yes Childhood Exposure to Second-Hand Smoke: Yes Diet Comment: regular caffeine: Yes (Coffee x 3 per day) during the past year weight has: remained stable Dental Care, Regularly: Yes Physical Activity Frequency: 1-2 Times per Week Seatbelt Use: always Sunscreen Use: Yes Assistive Devices: Glasses Allergies Allergies Allergy/AdvReac Type Severity Reaction Status Date / Time cephalexin [From Keflex] Allergy Intermediate Hives Verified 03/11/21 13:01 latex Allergy Intermediate HIVES Verified 03/11/21 13:01 adhesive tape AdvReac Intermediate Rash Verified 03/11/21 13:01 Home Meds Home Medications Medication Instructions Recorded Confirmed biotin 1 mg capsule 5 mg PO PM 12/03/18 03/11/21 fluticasone propionate 50 2 sprays INTRANASAL DAILY PRN #3 gm 04/12/19 03/11/21 mcg/actuation nasal spray,suspension winxxopdjr-bstaaelaakqrv-erqbntya 1 tab PO DAILY PRN #30 tab 04/14/19 03/11/21 50 mg-325 mg-40 mg tablet doxycycline hyclate 50 mg capsule 50 mg PO DAILY cap 03/29/20 03/11/21 levothyroxine 88 mcg tablet See Rx Instructions .ROUTE .COMPLEX 03/11/21 03/11/21 Previous Rx's Medication Instructions Recorded baclofen 10 mg tablet 5 mg PO HS PRN #20 tab 12/26/19 estradiol See Rx Instructions .ROUTE 07/19/20 .COMPLEX #42.5 g atorvastatin 10 mg tablet 10 mg PO HS #90 tab 07/29/20 trazodone 50 mg tablet 12.5 mg PO HS #30 tab 11/11/20 quinapril 20 mg tablet See Rx Instructions .ROUTE 02/18/21 .COMPLEX #90 tab hydrochlorothiazide 12.5 mg tablet 12.5 mg PO DAILY #30 tab 03/12/21 levothyroxine 75 mcg tablet 75 mcg PO .-WED #90 tab 03/12/21 Results & Data (ED) Vital Signs Vital Signs - 24 hr 03/10/21 23:58 03/11/21 00:18 03/11/21 02:00 Temperature 36.5 C Temperature Source Temporal Artery Scan Pulse Rate 79 Respiratory Rate 18 Respiratory Effort / Characteristics Non-Labored Spontaneous Respiratory Depth Normal Respiratory Pattern Regular Blood Pressure 206/102 H Blood Pressure [Left Arm] 210/120 H 195/102 H Blood Pressure Mean 136 Blood Pressure Mean [Left Arm] 150 133 Blood Pressure Position Sitting Blood Pressure Position [Left Arm] Sitting Pulse Oximetry 99 Oxygen Delivery Method Room Air Sepsis Recent Fever Within 48 Hours No Sepsis New/Unexplained Change in Mental Status N/A Sepsis Action Taken by Nursing No Action Required 03/11/21 02:01 03/11/21 04:00 03/11/21 06:00 Temperature Temperature Source Pulse Rate Respiratory Rate Respiratory Effort / Characteristics Respiratory Depth Respiratory Pattern Blood Pressure Blood Pressure [Left Arm] 137/82 123/78 Blood Pressure Mean Blood Pressure Mean [Left Arm] 100 93 Blood Pressure Position Blood Pressure Position [Left Arm] Pulse Oximetry 96 Oxygen Delivery Method Room Air Sepsis Recent Fever Within 48 Hours Sepsis New/Unexplained Change in Mental Status Sepsis Action Taken by Nursing Laboratory Data Result diagrams: 03/11/21 01:44 03/12/21 07:13 Lab Results 03/11/21 03/11/21 Range/Units 01:44 01:44 WBC 5.23 (4.8-10.8) K/uL RBC 3.93 L (4.2-5.4) M/uL Hgb 12.3 (12.0-16.0) g/dL Hct 37.4 (37-47) % MCV 95.2 (80-100) fL MCH 31.3 (25-34) pg MCHC 32.9 (32-36) g/dL RDW Std Deviation 44.7 (36.4-46.3) fL RDW Coeff of Lashanda 12.7 (11.5-14.5) % Plt Count 226 (130-400) K/uL MPV 9.7 (7.4-10.4) fL Immature Gran % (Auto) 0.0 % Neut % (Auto) 58.0 % Lymph % (Auto) 29.3 % Meagher % (Auto) 6.7 % Eos % (Auto) 5.2 % Baso % (Auto) 0.8 % Neut # (Auto) 3.04 (1.4-6.5) K/uL Lymph # (Auto) 1.53 (1.2-3.4) K/uL Meagher # (Auto) 0.35 (0.11-0.59) K/uL Eos # (Auto) 0.27 (0-0.5) K/uL Baso # (Auto) 0.04 (0-0.2) K/uL Immature Gran # (Auto) 0.00 (0.00-0.02) K/uL Sodium 141 (136-145) mmol/L Potassium 3.7 (3.5-5.1) mmol/L Chloride 111 H (98-107) mmol/L Carbon Dioxide 28 (21-32) mmol/L Anion Gap 2.0 L (3-11) BUN 20 H (7-18) mg/dl Creatinine 0.92 (0.6-1.2) mg/dl Est Cr Clr Drug Dosing 45.1 ml/min Est GFR ( Amer) 69.6 ml/min Est GFR (Non-Af Amer) 60.1 ml/min BUN/Creatinine Ratio 22.1 H (10-20) Glucose 102 H (70-99) mg/dl Calcium 9.1 (8.5-10.1) mg/dl Total Bilirubin 0.5 (0.2-1) mg/dl AST 20 (15-37) U/L ALT 29 (12-78) U/L Alkaline Phosphatase 68 (45-117) U/L Troponin I < 0.015 (0-0.045) ng/ml Total Protein 6.9 (6.4-8.2) gm/dl Albumin 3.8 (3.4-5.0) gm/dl Globulin 3.1 (2.5-4.0) gm/dl Albumin/Globulin Ratio 1.2 (0.9-2) Administered Medications Discontinued Medications Acetaminophen/Butalbital/Caffeine (Butalbital/Acetamin/Caffeine Tab) 1 tab PO Q4H PRN PRN Reason: Headache Stop: 04/10/21 13:39 Last Admin: 03/12/21 07:10 Dose: 1 tab Documented by: [id number] Admin: 03/11/21 21:35 Dose: 1 tab Documented by: [id number] Admin: 03/11/21 14:15 Dose: 1 tab Documented by: [id number] Atorvastatin Calcium (Atorvastatin 10 Mg Tab) 10 mg PO HS [place] Stop: 04/10/21 20:59 Last Admin: 03/11/21 21:34 Dose: 10 mg Documented by: [id number] Enalapril Maleate (Enalapril Maleate 10 Mg Tab) 20 mg PO [facility] Stop: 04/10/21 20:59 Last Admin: 03/11/21 21:34 Dose: 20 mg Documented by: [id number] Hydralazine HCl (Hydralazine Hcl 20 Mg/Ml Vial) 10 mg IV NOW STA Stop: 03/11/21 01:11 Last Admin: 03/11/21 01:51 Dose: 10 mg Documented by: [id number] Hydralazine HCl (Hydralazine Hcl 20 Mg/Ml Vial) 10 mg IV NOW STA Stop: 03/11/21 05:36 Last Admin: 03/11/21 05:46 Dose: 10 mg Documented by: [id number] Hydrochlorothiazide (Hydrochlorothiazide 25 Mg Tab) 25 mg PO DAILY [place] Stop: 04/10/21 10:29 Last Admin: 03/12/21 09:00 Dose: 25 mg Documented by: [id number] Admin: 03/11/21 14:15 Dose: 25 mg Documented by: [id number] Admin: 03/11/21 11:30 Dose: Not Given Documented by: [id number] Ioversol (Optiray 320 100ml) 94 ml IV ONCE ONE Stop: 03/12/21 16:20 Last Admin: 03/12/21 16:20 Dose: 94 ml Documented by: [id number] Levothyroxine Sodium (Levothyroxine Sodium 75 Mcg Tablet) 75 mcg PO [email or web address] [facility] Stop: 04/10/21 10:44 Last Admin: 03/12/21 06:06 Dose: 75 mcg Documented by: [id number] Admin: 03/11/21 11:32 Dose: 75 mcg Documented by: [id number] Ondansetron HCl (Ondansetron Inj 2 Mg/Ml 2 Ml Vial) 4 mg IV Q6H PRN PRN Reason: Nausea And Vomiting Stop: 04/10/21 12:49 Last Admin: 03/11/21 13:29 Dose: 4 mg Documented by: [id number] Trazodone HCl (Trazodone Hcl 50 Mg Tab) 12.5 mg PO HS [place] Stop: 04/10/21 20:59 Last Admin: 03/11/21 21:35 Dose: 12.5 mg Documented by: [id number] Imaging Data Radiologist's Impression: Chest X-Ray 03/11/21 01:11 XR chest 1V portable HISTORY: 75 years-old Female Hypertension COMPARISON: 02/03/2017 TECHNIQUE: Portable AP view of the chest FINDINGS: Cardiomediastinal and hilar silhouettes are within normal limits. Mild right hemidiaphragmatic elevation is unchanged. Minimal linear subsegmental bibasilar atelectasis. No pneumothorax, pleural effusion, overt pulmonary edema or lobar airspace consolidation. Degenerative changes of the shoulders and spine. IMPRESSION: Mild right hemidiaphragmatic elevation without acute process. ACT 112: Negative or not required by law. The above report was generated using voice recognition software. It may contain grammatical, syntax or spelling errors. Electronically signed by: Ciro Mendoza M.D. 03/11/2021 6:59 AM Discharge Plan Visit Data Chief Complaint: Hypertension Stated Complaint: HIGH BP ED Provider: Gloria Pretty Discharge Problem: Acute electrocardiogram changes, Hypertension Patient Disposition: Admitted As Inpatient Condition: Good Discharge Instructions Interventions: ED Discharge Assessment Last Done: 03/11/21 09:01 Discharge Problem: Hypertension Qualifiers: Hypertension type: unspecified secondary hypertension Qualified Code(s): I15.9 - Secondary hypertension, unspecified
[2021-03-11 02:17] LABS: Alanine Aminotransferase 29 U/L (12-78); Albumin Level 3.8 gm/dl (3.4-5.0); Aspartate Aminotransferase 20 U/L (15-37); BUN Creatinine Ratio 22.1 (10-20); Blood Urea Nitrogen 20 mg/dl (7-18); Calcium 9.1 mg/dl (8.5-10.1); Carbon Dioxide 28 mmol/L (21-32); Chloride 111 mmol/L (98-107); Creatinine Clr Calc Pharmacy 45.1 ml/min; Est GFR (African American) 69.6 ml/min; Est GFR (Non-African American) 60.1 ml/min; Glucose 102 mg/dl (70-99); Potassium 3.7 mmol/L (3.5-5.1); Sodium 141 mmol/L (136-145)
[2021-03-11 02:22] LABS: Albumin Globulin Ratio 1.2 (0.9-2); Alkaline Phosphatase 68 U/L (45-117); Bilirubin,Total 0.5 mg/dl (0.2-1); Globulin 3.1 gm/dl (2.5-4.0); Total Protein 6.9 gm/dl (6.4-8.2); Troponin I < 0.015 ng/ml (0-0.045)
--- NOTE | 2021-03-11 05:02 | History & Physical Report ---
Date of Service March 11, 2021 Assessment & Plan (1) Hypertension: Plan: Patient is a 75 year old female with PMHx Migraines, HTN, Hypothyroidism, Insomnia, and Rosacea who presents with 1 day history of L neck burning that comes and goes after about 10-30 minutes at a time. L neck burning/CP rule out -Patient with unusual symptoms of L neck burning, though Heart Score of 5 -Troponin negative initial, repeat ordered -EKG showing some T wave inversions in leads V2-V6 in addition to slight ST segment depressions. Also slight depressions in Lead I and aVL -The T wave inversions have some similarity to EKG from 04/17/19 when patient showed a RBBB -US carotid dopplers ordered -Stress echo ordered for later today Hypertensive Urgency -Patient with elevated BP as high as 210/120 in the ED -Given Hydralazine 10mg IV x2 in the ED -Will give patient's home quinapril now as well -PRN PO Hydralazine 10mg TID for BP systolic >180 -May require re-addition of second agent for control outpatient Hypothyroidism -Continue Levothyroxine Hypercholesterolemia -Continue Atorvastatin Insomnia -Continue Trazodone Dispo: Med/Surg Telemetry for continuous cardiac monitoring and BP monitoring FEN: HH diet DVT: SCDs Code: Conditional - OK CPR, do note intubate History of Present Illness Chief Complaint: L neck burning Primary Care Provider: Geetha Ernst DO Patient is a 75 year old female with PMHx Migraines, HTN, Hypothyroidism, Insomnia, and Rosacea who presents with 1 day history of L neck burning that comes and goes after about 10-30 minutes at a time. Patient notes that for the past few nights she has not been able to sleep very well, but this morning she noted L sided neck burning and pain that was overlying her SCM. She states that the pain comes and goes and does not seem to be associated with anything. Denies any worsening of it with exertion. She notes that it does occasionally trend to her jaw. She checked her BP today as she was concerned and found it to be 200/100 at home and came to the ED for evaluation. Patient notes that she has been taking quinapril for awhile now for her BP and notes she was on catapres in the past as well, but that has since been discontinued. Patient notes she has had stress tests in the past which have been normal. Currently denies any NVD, SOB, chest pain, fever, chills, abdominal pain, dysuria, visual changes, headache. Med Hx: Migraines, HTN, Hypothyroidism, Insomnia, and Rosacea Surg Hx: Hysterectomy Soc Hx: Denies tobacco or illicit drug use. Notes 1-2 alcoholic beverages monthly Allergies Allergy/AdvReac Type Severity Reaction Status Date / Time cephalexin [From Keflex] Allergy Intermediate Hives Verified 03/11/21 13:01 latex Allergy Intermediate HIVES Verified 03/11/21 13:01 adhesive tape AdvReac Intermediate Rash Verified 03/11/21 13:01 Home Medications Medication Instructions Recorded Confirmed Type biotin 1 mg capsule 5 mg PO PM 12/03/18 03/11/21 History fluticasone propionate 50 2 sprays INTRANASAL DAILY PRN #3 gm 04/12/19 03/11/21 History mcg/actuation nasal spray,suspension [id number]-gceavsfw 1 tab PO DAILY PRN #30 tab 04/14/19 03/11/21 History 50 mg-325 mg-40 mg tablet baclofen 10 mg tablet 5 mg PO HS PRN #20 tab 12/26/19 01/09/21 Rx hydrochlorothiazide 12.5 mg tablet 12.5 mg PO DAILY PRN tab 12/26/19 03/11/21 History doxycycline hyclate 50 mg capsule 50 mg PO DAILY cap 03/29/20 03/11/21 History estradiol See Rx Instructions .ROUTE 07/19/20 03/11/21 Rx .COMPLEX #42.5 g atorvastatin 10 mg tablet 10 mg PO HS #90 tab 07/29/20 03/11/21 Rx meloxicam 15 mg tablet (Mobic) 15 mg PO DAILY PRN #90 tab 09/18/20 03/11/21 Rx levothyroxine 75 mcg tablet 75 mcg PO .M-WED #90 tab 09/23/20 03/11/21 Rx trazodone 50 mg tablet 12.5 mg PO HS #30 tab 11/11/20 03/11/21 Rx quinapril 20 mg tablet See Rx Instructions .ROUTE 02/18/21 03/11/21 Rx .COMPLEX #90 tab levothyroxine 88 mcg tablet See Rx Instructions .ROUTE .COMPLEX 03/11/21 03/11/21 History Past Med/Surg History Medical History Allergic rhinitis due to pollen Alopecia totalis Anxiety and depression Cataract Cystocele, midline Disc degeneration, lumbar Gastroesophageal reflux disease Generalized osteoarthritis of multiple sites History of basal cell carcinoma (BCC) of skin Hypercholesterolemia Hypertension Hypothyroidism Insomnia Left knee DJD Microscopic hematuria Migraine headache Osteoporosis Painful total knee replacement, right Right bundle branch block (RBBB) Rosacea Vitamin D deficiency Surgical History H/O basal cell carcinoma excision H/O breast biopsy History of basal cell carcinoma History of salpingo-oophorectomy History of total knee arthroplasty S/P cataract surgery Status post hysterectomy Status post tubal ligation Family History Mother Cardiac disorder Grandmother (Maternal) Breast cancer Brother Prostate cancer Pancreatic cancer Grandfather (Maternal) Pancreatic cancer Uncle Pancreatic cancer MATERNAL Father Parkinsons disease Denies family history of Ovarian cancer Myocardial infarction Colorectal cancer Social History Smoking Status: Never smoker Second Hand Exposure: No; Hx Alcohol Use: Yes Alcohol type: wine Alcohol Intake Frequency: Monthly or Less Hx Substance Use: No Preferred Language: Faroese Communication Ability: Effective Visual Impairment: No Limitations Hearing Ability: Normal Crop Picker Required: No Beliefs That Will Affect Care: None marital status: Current Living Situation: Spouse current occupational status: retired Other Information That Helps Us Care for You: No Feels Safe at Home: Yes Safety Concerns: Feels Safe At This Time Childhood Exposure to Second-Hand Smoke: Yes Diet Comment: regular caffeine: Yes (Coffee x 3 per day) during the past year weight has: remained stable Dental Care, Regularly: Yes Physical Activity Frequency: 1-2 Times per Week Seatbelt Use: always Sunscreen Use: Yes Assistive Devices: None Review of Systems Review of Systems: All systems reviewed & are unremarkable except as noted in Subjective Physical Exam Constitutional: well developed, well nourished and cooperative; no acute distress Eyes: PERRL, conjunctivae normal, anicteric sclerae ENMT: external ear and nose normal, oropharynx normal Neck: trachea midline, no thyromegaly Respiratory: normal respiratory effort; no cough Auscultation: lungs clear to auscultation bilaterally; no diminished lung sounds, no crackles, no rales and no wheezes Cardiovascular: Rate/Rhythm: regular rate and regular rhythm Heart Sounds: normal S1 and normal S2; no murmur and no cardiac rub Vessels: no JVD Extremities: no calf tenderness and no edema Gastrointestinal (Abdomen): Inspection/Auscultation: abdomen normal to inspection and normal bowel sounds; abdomen not distended Percussion/Palpation: abdomen soft; abdomen nontender, no guarding and abdomen not rigid Musculoskeletal: no cyanosis or clubbing, extremities motor strength 5/5 Head/Neck/Chest: normocephalic and head atraumatic Skin: no rashes, warm and dry Psychiatric: A+Ox3, euthymic affect Results & Data Results & Data ([facility]) Vital Signs (Past 12 Hours) Vital Signs Temp Pulse Resp BP BP Pulse Ox 03/11/21 04:00 137/82 03/11/21 02:01 96 03/11/21 02:00 195/102 H 03/11/21 00:18 210/120 H 03/10/21 23:58 36.5 C 79 18 206/102 H 99 Code Status & VTE Plan VTE Prophylaxis Plan VTE Prophylaxis will be ordered: Yes Supervising Physician Co-Signing Physician Notes Patient seen and examined, chart reviewed, case discussed with Dr. Chávez and I agree with his assessment and plan as documented above. In brief, patient is a 75yo female with history of HTN - she is on Quinapril daily and takes HCTZ as needed. She presents with feeling of fullness and burning sensation in her left neck as well as elevated BP - recorded >200 at home, typically in 130's. Exam unremarkable No neurological deficits, carotid bruits +S1/S2, regular, no m/r/g Labs and images reviewed Assessment/Plan - 75yo female with elevated blood pressure as well as sensation of fullness and burning in left neck. Well controlled BP at home by report. No exertional CP or SOB. Patient is active and independent at home. Negative stress echo in 2018. Uncertain if her neck fullness and burning is atypical presentation of CAD? Doubtful. Troponin is negative. EKG with RBBB - has documented history of this from 2018 as well -Trend troponin -Continue Quinapril. Consider making HCTZ daily rather than PRN for BP control. -Monitor telemetry -Stress echo -REmainder of plan as above Resident Activity Tracking Resident Involvement: Resident Care Provided Care Provided: Adult [facility]
--- NOTE | 2021-03-11 07:01 | XRay Report ---
XR chest 1V portable HISTORY: 75 years-old Female Hypertension COMPARISON: 02/03/2017 TECHNIQUE: Portable AP view of the chest FINDINGS: Cardiomediastinal and hilar silhouettes are within normal limits. Mild right hemidiaphragmatic elevat ion is unchanged. Minimal linear subsegmental bibasilar atelectasis. No pneumothorax, pleural effusio n, overt pulmonary edema or lobar airspace consolidation. Degenerative changes of the shoulders and s pine. IMPRESSION: Mild right hemidiaphragmatic elevation without acute process. ACT 112: Negative or not required by law. The above report was generated using voice recognition software. It may contain grammatical, syntax o r spelling errors. Electronically signed by: Ciro Mendoza M.D. 03/11/2021 6:59 AM
[2021-03-11] MEDS ORDERED: hydrALAZINE 10 MG TAB PO PRN (10:45)
--- NOTE | 2021-03-11 10:46 | Ultrasound Report ---
ULTRASOUND OF THE CAROTID ARTERIES CLINICAL HISTORY: neck tingling COMPARISON STUDY: None. TECHNIQUE: Real-time, grayscale, and color Doppler sonography of the carotid arteries was performed. Imaging reviewed in the transverse and longitudinal planes. NASCET criteria was utilized for stenosis calcification. FINDINGS: There is mild atherosclerotic plaque present right carotid bulb. The peak systolic velocity within the right internal carotid artery is 102.7 cm/sec. The systolic velocity ratio of right internal to common carotid artery is 1.0. The peak systolic velocity within the left internal carotid artery is 99.4 cm/sec. The systolic velocity ratio left internal to common carotid artery is 0.9. Antegrade flow is seen in the vertebral arteries. The external carotid arteries are patent. Blood pressure in the right arm measured 178/85 mm/Hg. Blood pressure in the left arm measured 169/8 2 mm/Hg. IMPRESSION: No evidence of hemodynamically significant carotid stenosis. ACT 112: Negative or not required by law. The above report was generated using voice recognition software. It may contain grammatical, syntax o r spelling errors. Electronically signed by: Jacey Null DO 03/11/2021 10:45 AM
[2021-03-11] MEDS: hydroCHLOROthiazide 25 MG TAB PO SCH ×2 (11:30→14:15)
[2021-03-11] MEDS: LEVOTHYROXINE SODIUM 75 MCG TABLET PO SCH (11:32)
[2021-03-11] MEDS ORDERED: ONDANSETRON INJ 2 MG/ML 2 ML VIAL IV PRN (12:50)
--- NOTE | 2021-03-11 13:42 | History & Physical Bridge Note ---
Date of Service March 11, 2021 History & Physical Bridge Note I have examined the patient, reviewed the History & Physical and in the interval since the performance of the History & Physical I have noted the following changes of clinical significance: Patient was transferred from the ER to the cardiopulmonary lab for her stress echocardiogram and could not complete the exercise portion due to the onset of frontal headache, nausea She also reports new onset left flank pain just started once getting up to the floor, no abdominal pain, no urinary symptoms, no hematuria She has had chills but no fevers Her neck pain is now gone, BP lower than upon admission No migraine in 5 years and this is not as bad as typical migraines no focal neuro deficits no CP/SOB She reports she last checked her blood pressure about 1 month ago and typically at that time her blood pressures were normal in the 130s to 140s over 70s to 80s She very rarely takes the HCTZ at home-only takes it when she has a headache or feels her blood pressure is too high -check UA given left flank pain-if blood or signs of infection, would pursue CT abdomen/pelvis to look for stone or pyelonephritis head CT now checked-negative -fioricet for migraine, zofran for nausea repeat trop again this evening Cardiology consultation placed-discussed with cardiology-do not suspect acute coronary syndrome or anginal equivalent given the negative troponins and atypical left sided neck pain -No need for stress echocardiogram. Rest echocardiogram was normal as per cardiology Plan to continue to treat the blood pressure and consider imaging of the kidneys if blood pressures are improving by tomorrow
[2021-03-11] MEDS: BUTALBITAL/ACETAMIN/CAFFEINE TAB PO PRN ×2 (14:15→21:35)
--- NOTE | 2021-03-11 15:48 | CT Scan Report ---
CT head/brain wo con CLINICAL HISTORY: 75 years-old Female with headache,neck pain. Acute headache with neck pain TECHNIQUE: Multiple axial CT images of the head were obtained without contrast. A dose lowering tech nique was utilized adhering to the principles of ALARA. CT DOSE: 638.56 mGycm COMPARISON: Head CT 12/03/2018 FINDINGS: No acute intracranial hemorrhage, midline shift, intracranial mass, hydrocephalus, territorial ischem ia or abnormal extra-axial collection. Age-related involutional changes. Mild white matter hypodensit ies suggestive of chronic microvascular ischemic disease. The calvarium is intact. The paranasal sinuses, mastoid air cells, and middle ear cavities are clear . IMPRESSION: No acute intracranial abnormality. ACT 112: Negative or not required by law. The above report was generated using voice recognition software. It may contain grammatical, syntax o r spelling errors. Electronically signed by: Ciro Mendoza M.D. 03/11/2021 3:46 PM
--- NOTE | 2021-03-11 16:16 | Cardiology Consultation ---
Date of Consultation March 11, 2021 Assessment & Plan (1) Hypertension: (2) Neck pain: 1. Hypertension: Unclear why the patient's blood pressure is elevated recently. Possibly reactive to underlying illness as of yet unidentified. She states she has been eating some more salt, but does not appear to have a high salt diet. Not drinking alcohol regularly. She did not report symptoms consistent with sleep apnea. She has some other symptoms of nausea, but no vomiting today. No blurry vision or evidence of cardiac than once his suggests an emergency. She has been given supplemental doses of hydralazine with some improvement in her blood pressure. Long-term she will likely require a 3rd agent. She takes hydrochlorothiazide on an intermittent basis but would likely benefit from taking this daily. Low-dose amlodipine may also be useful. Could consider renal ultrasound in order to exclude fibromuscular dysplasia or renal artery stenosis. 2. Neck pain: This is an atypical symptom for coronary disease. I do not believe this is admissions representative of an acute coronary syndrome. No objective evidence of ischemia. EKG unchanged from prior. At this point I do not believe she requires any stress testing. Normal exercise stress test in 2019. History of Present Illness Reason for Consultation: Hypertension Requesting Physician: Zhen Attending Physician: Roseann Fontaine MD History of Present Illness The patient is a 75-year-old woman with a history of high blood pressure who presented to the emergency room with 12 hours worth of left neck burning. Patient states that approximately 12 hours before admission she began to experience symptoms of a pulsating burning sensation in the left neck. This was intermittent in nature. Episodes would last 10-15 minutes before resolving without any specific intervention. The symptoms are not position or with associated with any specific activity. She cannot recall having similar symptoms in the past. She also noticed that her blood pressure was significantly elevated. The patient otherwise appears to be an active individual generally does not experience symptoms associated with activity. She checks her blood pressure on occasion in generally speaking the systolic reading is 130-140. More recently she has been having some headaches. She denies any visual disturbance. No precordial chest discomfort. A very focal and achy pain in the left flank. Currently very nauseated as well. Allergies Allergy/AdvReac Type Severity Reaction Status Date / Time cephalexin [From Keflex] Allergy Intermediate Hives Verified 03/11/21 13:01 latex Allergy Intermediate HIVES Verified 03/11/21 13:01 adhesive tape AdvReac Intermediate Rash Verified 03/11/21 13:01 Home Medications Medication Instructions Recorded Confirmed Type biotin 1 mg capsule 5 mg PO PM 12/03/18 03/11/21 History fluticasone propionate 50 2 sprays INTRANASAL DAILY PRN #3 gm 04/12/19 03/11/21 History mcg/actuation nasal spray,suspension [id number]-[id number] 1 tab PO DAILY PRN #30 tab 04/14/19 03/11/21 History 50 mg-325 mg-40 mg tablet baclofen 10 mg tablet 5 mg PO HS PRN #20 tab 12/26/19 01/09/21 Rx hydrochlorothiazide 12.5 mg tablet 12.5 mg PO DAILY PRN tab 12/26/19 03/11/21 History doxycycline hyclate 50 mg capsule 50 mg PO DAILY cap 03/29/20 03/11/21 History estradiol See Rx Instructions .ROUTE 07/19/20 03/11/21 Rx .COMPLEX #42.5 g atorvastatin 10 mg tablet 10 mg PO HS #90 tab 07/29/20 03/11/21 Rx meloxicam 15 mg tablet (Mobic) 15 mg PO DAILY PRN #90 tab 09/18/20 03/11/21 Rx levothyroxine 75 mcg tablet 75 mcg PO .-WED #90 tab 09/23/20 03/11/21 Rx trazodone 50 mg tablet 12.5 mg PO HS #30 tab 11/11/20 03/11/21 Rx quinapril 20 mg tablet See Rx Instructions .ROUTE 02/18/21 03/11/21 Rx .COMPLEX #90 tab levothyroxine 88 mcg tablet See Rx Instructions .ROUTE .COMPLEX 03/11/21 03/11/21 History Patient History Medical History Allergic rhinitis due to pollen Alopecia totalis Anxiety and depression Cataract Cystocele, midline Disc degeneration, lumbar Gastroesophageal reflux disease Generalized osteoarthritis of multiple sites History of basal cell carcinoma (BCC) of skin Hypercholesterolemia Hypertension Hypothyroidism Insomnia Left knee DJD Microscopic hematuria Migraine headache Osteoporosis Painful total knee replacement, right Right bundle branch block (RBBB) Rosacea Vitamin D deficiency Surgical History H/O basal cell carcinoma excision H/O breast biopsy History of basal cell carcinoma History of salpingo-oophorectomy History of total knee arthroplasty S/P cataract surgery Status post hysterectomy Status post tubal ligation Family History Mother Cardiac disorder Grandmother (Maternal) Breast cancer Brother Prostate cancer Pancreatic cancer Grandfather (Maternal) Pancreatic cancer Uncle Pancreatic cancer MATERNAL Father Parkinsons disease Denies family history of Ovarian cancer Myocardial infarction Colorectal cancer Social History Smoking Status: Never smoker Second Hand Exposure: No; Hx Alcohol Use: Yes Alcohol type: wine Alcohol Intake Frequency: Monthly or Less Hx Substance Use: No Preferred Language: Greenlandic Communication Ability: Effective Visual Impairment: No Limitations Hearing Ability: Normal Attache Required: No Beliefs That Will Affect Care: None marital status: Current Living Situation: Spouse current occupational status: retired Other Information That Helps Us Care for You: No Feels Safe at Home: Yes Safety Concerns: Feels Safe At This Time Childhood Exposure to Second-Hand Smoke: Yes Diet Comment: regular caffeine: Yes (Coffee x 3 per day) during the past year weight has: remained stable Dental Care, Regularly: Yes Physical Activity Frequency: 1-2 Times per Week Seatbelt Use: always Sunscreen Use: Yes Assistive Devices: None Review of Systems Review of Systems: Per HPI Physical Exam Physical Exam: She is alert and oriented x3. Mood affect appear normal. She answered all questions appropriately. She appears slightly ill. HEENT: Sclerae are anicteric. Pupils are equal and reactive to light and accommodation. Extraocular movements were intact. Neuro: Cranial nerves intact (wearing mask) Neck: Examination of the submandibular region did not reveal any significant lymphadenopathy. Carotids are palpable bilaterally and free of bruits on auscultation. There was no evidence of jugular venous distention. The thyroid was not enlarged. Lungs: Lungs are clear to auscultation bilaterally. There are no rales wheezes or rhonchi. She has normal respiratory effort without use of accessory muscles. There is normal pulmonary excursion. Cardiac: The rhythm was regular. S1 and S2 were normal. There are no murmurs on examination. The PMI was not markedly displaced on palpation. Abdomen: The abdomen was soft and nontender. Extremities: Patient has bilateral radial pulses that are equal in intensity. There is no evidence cyanosis or clubbing. Skin: There are no rashes noted on examination today. Results & Data ([facility]) Vital Signs (Past 12 Hours) Vital Signs Temp Pulse Pulse Resp BP BP Pulse Ox 03/11/21 15:51 36.6 C 87 18 167/87 H 97 03/11/21 10:39 36.7 C 91 H 20 172/80 H 99 03/11/21 08:30 85 16 124/66 03/11/21 08:00 83 18 123/57 L 03/11/21 07:30 91 H 16 131/73 03/11/21 07:00 95 H 19 123/101 H 03/11/21 06:32 99 H 20 167/78 H 03/11/21 06:00 154/94 H 123/78 03/11/21 05:30 84 19 201/100 H 03/11/21 05:00 84 15 189/102 H 03/11/21 04:30 83 13 191/97 H Laboratory Results Abnormal Lab Results 03/11/21 03/11/21 03/11/21 01:44 01:44 05:59 WBC 5.23 RBC 3.93 L Hgb 12.3 Hct 37.4 MCV 95.2 MCH 31.3 MCHC 32.9 RDW Std Deviation 44.7 RDW Coeff of Lashanda 12.7 Plt Count 226 MPV 9.7 Immature Gran % (Auto) 0.0 Neut % (Auto) 58.0 Lymph % (Auto) 29.3 Edwards % (Auto) 6.7 Eos % (Auto) 5.2 Baso % (Auto) 0.8 Neut # (Auto) 3.04 Lymph # (Auto) 1.53 Edwards # (Auto) 0.35 Eos # (Auto) 0.27 Baso # (Auto) 0.04 Immature Gran # (Auto) 0.00 Sodium 141 Potassium 3.7 Chloride 111 H Carbon Dioxide 28 Anion Gap 2.0 L BUN 20 H Creatinine 0.92 Est Cr Clr Drug Dosing 45.1 Est GFR ( Amer) 69.6 Est GFR (Non-Af Amer) 60.1 BUN/Creatinine Ratio 22.1 H Glucose 102 H Calcium 9.1 Total Bilirubin 0.5 AST 20 ALT 29 Alkaline Phosphatase 68 Troponin I < 0.015 Total Protein 6.9 Albumin 3.8 Globulin 3.1 Albumin/Globulin Ratio 1.2 COVID-19 Eval Order Covid19 at [facility] SARS-CoV-2 (PCR) 03/11/21 03/11/21 05:59 10:50 WBC RBC Hgb Hct MCV MCH MCHC RDW Std Deviation RDW Coeff of Lashanda Plt Count MPV Immature Gran % (Auto) Neut % (Auto) Lymph % (Auto) Edwards % (Auto) Eos % (Auto) Baso % (Auto) Neut # (Auto) Lymph # (Auto) Edwards # (Auto) Eos # (Auto) Baso # (Auto) Immature Gran # (Auto) Sodium Potassium Chloride Carbon Dioxide Anion Gap BUN Creatinine Est Cr Clr Drug Dosing Est GFR ( Amer) Est GFR (Non-Af Amer) BUN/Creatinine Ratio Glucose Calcium Total Bilirubin AST ALT Alkaline Phosphatase Troponin I < 0.015 Total Protein Albumin Globulin Albumin/Globulin Ratio COVID-19 Eval Order SARS-CoV-2 (PCR) NEGATIVE Diagnostic Findings Head CT which did not demonstrate any intracranial abnormalities Carotid Dopplers did not reveal any evidence of carotid stenosis. Echocardiogram performed today was normal PG Care Time/CCT Total # of Minutes Spent Total Time Spent with Patient: Total time spent is greater than 50% in coordination of care (as documented) at patient's floor/unit and/or counseling patient: Coding Level of Care Code 89910 Initial Inpt Care Lvl 3 Diagnoses Hypertension I10 Neck pain M54.2
--- NOTE | 2021-03-11 16:21 | XCELERA ---
[id number]
[2021-03-11 17:44] LABS: Appearance Urine Clear (Clear); Bilirubin Urine Negative (Negative); Blood Urine Negative (Negative); Color Urine Yellow; Glucose Urine UA Negative (Negative); Ketones Urine Trace (Negative); Leukocyte Esterase Urine Negative (Negative); Nitrite Urine Negative (Negative); Protein Urine Negative (Negative); Specific Gravity Urine 1.017 (1.000-1.030); Urobilinogen Urine Negative (Negative); pH Urine 7.5 (4.5-7.5)
--- NOTE | 2021-03-11 18:24 | Electrocardiogram Report ---
Test Reason : Blood Pressure : / mmHG Vent. Rate : 081 BPM Atrial Rate : 081 BPM P-R Int : 172 ms QRS Dur : 154 ms QT Int : 406 ms P-R-T Axes : 071 077 -22 degrees QTc Int : 471 ms Normal sinus rhythm Right bundle branch block Abnormal ECG When compared with ECG of 11-MAR-2021 00:28, (unconfirmed) No significant change was found Confirmed by Sarkis Linda ([id number]) on 03/11/2021 6:24:02 PM Referred By: REFERRED SELF Confirmed By:Juancho Linda
--- NOTE | 2021-03-11 18:25 | Electrocardiogram Report ---
Test Reason : Blood Pressure : / mmHG Vent. Rate : 081 BPM Atrial Rate : 081 BPM P-R Int : 174 ms QRS Dur : 140 ms QT Int : 390 ms P-R-T Axes : 074 081 -01 degrees QTc Int : 453 ms Normal sinus rhythm Right bundle branch block T wave abnormality, consider inferior ischemia T wave abnormality, consider anterolateral ischemia Abnormal ECG When compared with ECG of 11-MAR-2021 03:12, (unconfirmed) No significant change was found Confirmed by Sarkis Linda ([id number]) on 03/11/2021 6:25:18 PM Referred By: REFERRED SELF Confirmed By:Juancho Linda
--- NOTE | 2021-03-11 18:45 | Electrocardiogram Report ---
Test Reason : Blood Pressure : / mmHG Vent. Rate : 075 BPM Atrial Rate : 075 BPM P-R Int : 166 ms QRS Dur : 150 ms QT Int : 416 ms P-R-T Axes : 066 071 -09 degrees QTc Int : 464 ms Poor data quality, interpretation may be adversely affected Normal sinus rhythm Right bundle branch block Abnormal ECG When compared with ECG of 03-FEB-2017 03:11, QRS duration has increased T wave inversion now evident in Anterolateral leads Confirmed by Sarkis Linda ([id number]) on 03/11/2021 6:45:43 PM Referred By: REFERRED SELF Confirmed By:Juancho Linda
--- NOTE | 2021-03-11 18:56 | Billing Data ---
Date of Service March 11, 2021 Coding Level of Care Code INT OBSERVATION CARE 50M LVL 2
[2021-03-11] MEDS ORDERED: ATORVASTATIN 10 MG TAB PO SCH (21:00)
[2021-03-11] MEDS ORDERED: traZODone HCL 50 MG TAB PO SCH (21:00)
[2021-03-11] MEDS ORDERED: ENALAPRIL MALEATE 10 MG TAB PO SCH (21:00)
[2021-03-12] MEDS: LEVOTHYROXINE SODIUM 75 MCG TABLET PO SCH (06:06)
[2021-03-12] MEDS: BUTALBITAL/ACETAMIN/CAFFEINE TAB PO PRN (07:10)
[2021-03-12 08:27] LABS: BUN Creatinine Ratio 17.8 (10-20); Calcium 9.6 mg/dl (8.5-10.1); Creatinine Clr Calc Pharmacy 39.9 ml/min; Est GFR (Non-African American) 51.8 ml/min; Potassium 3.6 mmol/L (3.5-5.1)
[2021-03-12] MEDS ORDERED: KETOROLAC TROMETHAMINE 15 MG/ML VIAL IV PRN (08:53)
[2021-03-12] MEDS: hydroCHLOROthiazide 25 MG TAB PO SCH (09:00)
[2021-03-12] MEDS ORDERED: OPTIRAY 320 100ml IV ONE (16:19)
--- NOTE | 2021-03-12 16:51 | CT Scan Report ---
CT OF THE ABDOMEN WITH AND WITHOUT CONTRAST RENAL PROTOCOL CLINICAL HISTORY: Hypertensive urgency,left flank pain. COMPARISON STUDY: No previous studies for comparison. TECHNIQUE: Unenhanced, nephrographic and delayed phase imaging of the abdomen was performed. Intraven ous injection of 94 cc Optiray 320 IV was uneventful. Automated exposure control was utilized for the study. A dose lowering technique was utilized adhering to the principles of ALARA. FINDINGS: Lung bases are unremarkable. There is a punctate calculus within the upper pole of the left kidney. There is no hydronephrosis. No calculi are identified within visualized portions of the uret ers. There are numerous subcentimeter bilateral renal lesions which are too small to characterize. Th ere is no CT evidence for pyelonephritis. Although this study was not performed as a CTA exam, the le ft renal artery is patent. There is no perinephric infiltration. Subcentimeter right hepatic lobe les ion is likely benign. There is no biliary or pancreatic ductal dilatation. The spleen, adrenal glands and pancreas are unremarkable. There is no peripancreatic or pericholecystic infiltration. The calib er and wall thickness of visualized small and large bowel are normal. There is no ascites or lymphade nopathy. No acute fracture or suspicious lesion is identified within the visualized skeletal structur es. IMPRESSION: 1. No hydronephrosis. No CT evidence for pyelonephritis. Punctate left renal calculus. 2. Early no acute process within the abdomen. 3. Numerous subcentimeter bilateral renal lesions which are too small to characterize but are probabl y benign. ACT 112: Negative or not required by law. Electronically signed by: Lenin Lutz M.D. 03/12/2021 4:50 PM
--- NOTE | 2021-03-12 17:32 | Discharge Summary ---
Date of Service March 12, 2021 Admission HPI Per Admitting Provider Patient is a 75 year old female with PMHx Migraines, HTN, Hypothyroidism, Insomnia, and Rosacea who presents with 1 day history of L neck burning that comes and goes after about 10-30 minutes at a time. Patient notes that for the past few nights she has not been able to sleep very well, but this morning she noted L sided neck burning and pain that was overlying her SCM. She states that the pain comes and goes and does not seem to be associated with anything. Denies any worsening of it with exertion. She notes that it does occasionally trend to her jaw. She checked her BP today as she was concerned and found it to be 200/100 at home and came to the ED for evaluation. Patient notes that she has been taking quinapril for awhile now for her BP and notes she was on catapres in the past as well, but that has since been discontinued. Patient notes she has had stress tests in the past which have been normal. Currently denies any NVD, SOB, chest pain, fever, chills, abdominal pain, dysuria, visual changes, he adache. Med Hx: Migraines, HTN, Hypothyroidism, Insomnia, and Rosacea Surg Hx: Hysterectomy Soc Hx: Denies tobacco or illicit drug use. Notes 1-2 alcoholic beverages monthly Discharge Data Allergies Allergy/AdvReac Type Severity Reaction Status Date / Time cephalexin [From Keflex] Allergy Intermediate Hives Verified 03/11/21 13:01 latex Allergy Intermediate HIVES Verified 03/11/21 13:01 adhesive tape AdvReac Intermediate Rash Verified 03/11/21 13:01 Consultations 03/11/21 04:02 ED Decision to Admit Stat 03/11/21 10:24 Consult Cardiology Routine Ordered Studies 03/11/21 05:23 US carotid doppler BI Routine 03/11/21 13:40 CT head/brain wo con Stat 03/12/21 14:31 CT renal wo/w con Urgent Hospital Course (1) Hypertension: Patient is a 75 year old female with PMHx Migraines, HTN, Hypothyroidism, Insomnia, and Rosacea who presents with 1 day history of L neck burning that comes and goes after about 10-30 minutes at a time. L neck burning/CP rule out -Patient with unusual symptoms of L neck burning, though Heart Score of 5 -Troponin negative initial, repeat ordered -EKG showing some T wave inversions in leads V2-V6 in addition to slight ST segment depressions. Also slight depressions in Lead I and aVL -The T wave inversions have some similarity to EKG from 04/17/19 when patient showed a RBBB -US carotid dopplers ordered -Stress echo ordered for later today Hypertensive Urgency -Patient with elevated BP as high as 210/120 in the ED -Given Hydralazine 10mg IV x2 in the ED -Will give patient's home quinapril now as well -PRN PO Hydralazine 10mg TID for BP systolic >180 -May require re-addition of second agent for control outpatient Hypothyroidism -Continue Levothyroxine Hypercholesterolemia -Continue Atorvastatin Insomnia -Continue Trazodone Dispo: Med/Surg Telemetry for continuous cardiac monitoring and BP monitoring FEN: HH diet DVT: SCDs Code: Conditional - OK CPR, do note intubate Discharge Plan Discharge Items Patient Disposition: Home - Self-Care Reason For Visit: L NECK BURNING, CP R/O Discharge Diagnosis: Hypertensive urgency, migraine headache, left flank pain-muscle strain Condition on Discharge: Good Activity: Resume your previous activity Non-emergency contact: Primary Care Provider Call non-emergency contact if: you have any medication questions, your symptoms worsen, your pain is not controlled and your pain is worsening Follow-up/Referrals: Geetha Ernst DO [Primary Care Provider] - (Follow up within 1-2 weeks.) Diet: Heart Healthy and Low Sodium (2gm) Addtl Attending Provider Instructions: You were admitted with elevated blood pressures and left sided neck pain. Your neck pain resolved after control of your blood pressure. You did not have a heart attack and your heart function was found to be normal on an echocardiogram. Please continue to take HCTZ 12.5mg once daily every day for better blood pressure control. Your left sided back pain is likely a muscle strain as your urine was normal and a CT scan of the kidneys was normal except for some likely small cysts. You should avoid the use of NSAIDs like ibuprofen/Advil and meloxicam as these can increase your blood pressure. Please keep track of your blood pressures at home and follow up with your PCP within 1 week. Pending Studies at Discharge: No Stand-Alone Forms: My [facility] Medications and DC Order Prescriptions: Continued estradiol 0.01 % (0.1 mg/gram) cream See Rx Instructions .ROUTE .COMPLEX Qty: 42.5 RF: 1 atorvastatin 10 mg tablet 10 mg PO HS Qty: 90 RF: 3 trazodone 50 mg tablet 12.5 mg PO HS Qty: 30 RF: 1 quinapril 20 mg tablet See Rx Instructions .ROUTE .COMPLEX Qty: 90 RF: 1 levothyroxine 75 mcg tablet 75 mcg PO .-WED Qty: 90 RF: 1 baclofen 10 mg tablet 5 mg PO HS PRN (Reason: muscle spams) Qty: 20 RF: 0 fluticasone propionate 50 mcg/actuation spray,suspension 2 sprays intranasal DAILY PRN (Reason: Allergic Symptoms) Qty: 3 RF: 0 uvaeekkote-utprqmfvmjnjq-gbgv 50-325-40 mg tablet 1 tab PO DAILY PRN (Reason: pain) Qty: 30 RF: 0 biotin 1 mg Capsule 5 mg PO PM RF: 0 doxycycline hyclate 50 mg capsule 50 mg PO DAILY RF: 0 levothyroxine 88 mcg tablet See Rx Instructions .ROUTE .COMPLEX RF: 0 Changed hydrochlorothiazide 12.5 mg tablet 12.5 mg PO DAILY Qty: 30 RF: 0 Discontinued meloxicam [Mobic] 15 mg tablet 15 mg PO DAILY PRN (Reason: pain) Qty: 90 RF: 0 Discharge Orders: Discharge Order (Routine); Ordered 03/12/21 Ordered By: Roseann Fontaine Admission Data Admit Date/Time: 03/11/21 05:01 Attending Provider: Roseann Fontaine Admit Provider: Chidi Chávez Primary Care Provider: Geetha Ernst Other Providers: Yarelis Pedersen ; Alban Linda Coding Diagnoses Hypertension I10
--- NOTE | 2021-03-12 18:58 | Electrocardiogram Report ---
Test Reason : Blood Pressure : / mmHG Vent. Rate : 070 BPM Atrial Rate : 070 BPM P-R Int : 152 ms QRS Dur : 148 ms QT Int : 418 ms P-R-T Axes : 067 078 011 degrees QTc Int : 451 ms Normal sinus rhythm Right bundle branch block T wave abnormality, consider lateral ischemia Abnormal ECG When compared with ECG of 11-MAR-2021 05:21, No significant change was found Confirmed by Sarkis Linda ([id number]) on 03/12/2021 6:57:55 PM Referred By: REFERRED SELF Confirmed By:Juancho Linda
[2021-03-15] MEDS ORDERED: LEVOTHYROXINE SODIUM 88 MCG TABLET PO SCH (06:30)
== END 2021-03-12 18:15 | disposition home or self-care (01) ==
LOC: ED 23:46 → 2N 23:46 → SUATTDRO 03-11 05:01 → 2N 03-11 09:01
DX: M81.0 Age-related osteoporosis without current pathological fracture; I45.10 Unspecified right bundle-branch block; E78.00 Pure hypercholesterolemia, unspecified; K21.9 Gastro-esophageal reflux disease without esophagitis; Z96.651 Presence of right artificial knee joint; G47.00 Insomnia, unspecified; M54.2 Cervicalgia; M17.12 Unilateral primary osteoarthritis, left knee; I16.0 Hypertensive urgency; E03.9 Hypothyroidism, unspecified; Z88.1 Allergy status to other antibiotic agents; Z79.899 Other long term (current) drug therapy; Z91.040 Latex allergy status; I10 Essential (primary) hypertension